=== PATIENT | female | born 1970 | race Caucasian/White ===

== ENCOUNTER → 2017-10-23 | Outpatient (REF) | payer BC ==
[2017-10-23 16:34] LABS: TOTAL 25(OH) VITAMIN D 30.8 NG/ML (30.0-100.0)
[2017-10-23 16:37] LABS: ALBUMIN 3.8 GM/DL (3.2-5.2); ALBUMIN/GLOBULIN RATIO 1.12 (1.00-1.93); ALKALINE PHOSPHATASE 101 U/L (45-117); ALT/SGPT 23 U/L (12-78); ANION GAP 5 MEQ/L (8-16); AST/SGOT 14 U/L (7-37); BILIRUBIN,TOTAL 0.4 MG/DL (0.2-1.0); BLOOD UREA NITROGEN 9 MG/DL (7-18); CALCIUM LEVEL 8.6 MG/DL (8.5-10.1); CARBON DIOXIDE LEVEL 31 MEQ/L (21-32); CHLORIDE LEVEL 106 MEQ/L (98-107); CREATININE FOR GFR 0.62 MG/DL (0.55-1.30); GLOMERULAR FILTRATION RATE > 60.0 (>58); GLUCOSE, FASTING 95 MG/DL (70-100); SODIUM LEVEL 142 MEQ/L (136-145); THYROID STIMULATING HORMONE 0.457 uIU/ML (0.358-3.740); TOTAL PROTEIN 7.2 GM/DL (6.4-8.2)
== END ==
LOC: M SFHCPLAZ 14:43
DX: Z00.00 Encounter for general adult medical examination without abnormal findings (principal); E55.9 Vitamin D deficiency, unspecified
CPT/HCPCS: 84443

== ENCOUNTER → 2018-11-02 | Outpatient (CLI) | payer BC ==
[2018-11-02 10:37] LABS: ALBUMIN 3.5 GM/DL (3.2-5.2); ALT/SGPT 20 U/L (12-78); BILIRUBIN,TOTAL 0.7 MG/DL (0.2-1.0); BLOOD UREA NITROGEN 11 MG/DL (7-18); CALCIUM LEVEL 8.8 MG/DL (8.5-10.1); CARBON DIOXIDE LEVEL 29 MEQ/L (21-32); CHLORIDE LEVEL 106 MEQ/L (98-107); CHOLESTEROL LEVEL 177 MG/DL (<200); CHOLESTEROL RISK RATIO 4.317 (<5); CREATININE FOR GFR 0.64 MG/DL (0.55-1.30); GLOMERULAR FILTRATION RATE > 60.0 (>51); GLUCOSE, FASTING 92 MG/DL (70-100); HDL CHOLESTEROL 41 MG/DL (>40); LDL CHOLESTEROL 116 MG/DL (<100); NON-HDL-C 136 MG/DL; POTASSIUM SERUM 4.5 MEQ/L (3.5-5.1); SODIUM LEVEL 140 MEQ/L (136-145); THYROID STIMULATING HORMONE 0.429 uIU/ML (0.358-3.740); TOTAL 25(OH) VITAMIN D 28.3 NG/ML (30.0-100.0); TOTAL PROTEIN 6.9 GM/DL (6.4-8.2); TRIGLYCERIDES LEVEL 99 MG/DL (<150)
[2018-11-02 10:49] LABS: HEMOGLOBIN A1c 5.8 %
== END ==
LOC: M SMT 07:57
PROVIDERS: ATTEND Nurse Practitioner Adult Health
DX: Z00.00 Encounter for general adult medical examination without abnormal findings (principal); E55.9 Vitamin D deficiency, unspecified; Z83.3 Family history of diabetes mellitus; Z80.8 Family history of malignant neoplasm of other organs or systems

== ENCOUNTER → 2020-03-16 | Outpatient (CLI) | payer BC | LOC: M LABSMTC 10:34 | PROVIDERS: ATTEND Orthopaedic Surgery | DX: Z01.812 Encounter for preprocedural laboratory examination (principal); Z20.828 Contact with and (suspected) exposure to other viral communicable diseases ==

== ENCOUNTER → 2020-04-24 | Outpatient (CLI) | payer BC | LOC: M LABSMTC 09:12 | PROVIDERS: ATTEND Orthopaedic Surgery | DX: Z01.812 Encounter for preprocedural laboratory examination (principal); Z20.828 Contact with and (suspected) exposure to other viral communicable diseases ==

== ENCOUNTER → 2020-05-22 | Outpatient (REF) | payer BC ==
[2020-05-22 17:41] LABS: APPEARANCE, URINE CLEAR (CLEAR); BACTERIA, URINE AUTO 1+ (NEGATIVE); BILIRUBIN, URINE AUTO NEGATIVE (NEGATIVE); BLOOD, URINE BLOOD NEGATIVE (NEGATIVE); COLOR, URINE STRAW (YELLOW); GLUCOSE, URINE (UA) AUTO NEGATIVE (NEGATIVE); KETONE, URINE AUTO NEGATIVE (NEGATIVE); LEUKOCYTE ESTERASE, URINE AUTO NEGATIVE (NEGATIVE); NITRITE, URINE AUTO NEGATIVE (NEGATIVE); PROTEIN, URINE AUTO NEGATIVE (NEGATIVE); RBC, URINE AUTO 1 /HPF (0-3); SPECIFIC GRAVITY URINE AUTO 1.004 (1.002-1.035); SQUAMOUS EPITHELIAL CELL UR AU 0 /HPF (0-6); UROBILINOGEN, URINE AUTO 0.2 mg/dL (0.0-2.0); WBC, URINE AUTO 0 /HPF (0-3)
== END ==
LOC: M SMT 17:08
PROVIDERS: ATTEND Nurse Practitioner Family
DX: R35.0 Frequency of micturition (principal)

== ENCOUNTER → 2021-03-05 | Outpatient (CLI) | payer BC ==
[2021-03-05 11:11] LABS: ALT/SGPT 32 U/L (12-78); BILIRUBIN,TOTAL 0.8 MG/DL (0.2-1.0); BLOOD UREA NITROGEN 12 MG/DL (7-18); CALCIUM LEVEL 9.4 MG/DL (8.5-10.1); CARBON DIOXIDE LEVEL 29 MEQ/L (21-32); CHLORIDE LEVEL 108 MEQ/L (98-107); CHOLESTEROL LEVEL 214 MG/DL (<200); CREATININE FOR GFR 0.65 MG/DL (0.55-1.30); GLOMERULAR FILTRATION RATE > 60.0 (>51); GLUCOSE, FASTING 97 MG/DL (70-100); POTASSIUM SERUM 4.8 MEQ/L (3.5-5.1); SODIUM LEVEL 139 MEQ/L (136-145); TRIGLYCERIDES LEVEL 236 MG/DL (<150)
[2021-03-05 11:12] LABS: ALBUMIN 3.6 GM/DL (3.2-5.2); CHOLESTEROL RISK RATIO 6.294 (<5); HDL CHOLESTEROL 34 MG/DL (>40); LDL CHOLESTEROL 133 MG/DL (<100); MAGNESIUM LEVEL 2.3 MG/DL (1.8-2.4); NON-HDL-C 180 MG/DL; THYROID STIMULATING HORMONE 0.491 uIU/ML (0.358-3.740)
[2021-03-05 11:55] LABS: TOTAL 25(OH) VITAMIN D 47.6 NG/ML (30.0-100.0)
[2021-03-05 15:13] LABS: HEMOGLOBIN A1c 5.8 %
== END ==
LOC: M PLALAB 07:17
PROVIDERS: ATTEND Nurse Practitioner Adult Health
DX: Z00.00 Encounter for general adult medical examination without abnormal findings (principal); Z83.3 Family history of diabetes mellitus; E55.9 Vitamin D deficiency, unspecified; I87.2 Venous insufficiency (chronic) (peripheral); Z13.220 Encounter for screening for lipoid disorders; Z80.8 Family history of malignant neoplasm of other organs or systems

== ENCOUNTER → 2021-04-12 | Outpatient (CLI) | payer BC ==
[~2021-04-12] MED LIST: APPLCAP PO; NOXI1TAB PO; OMEP40CA4 PO; QC A650T3 PO; RA M500C PO; SENN8.6T58 PO
== END ==
LOC: M LABSMTC 09:42
PROVIDERS: ATTEND Anesthesiology
DX: Z01.812 Encounter for preprocedural laboratory examination (principal); Z20.822 Contact with and (suspected) exposure to COVID-19

== ENCOUNTER 2021-04-16 07:54 | Day surgery (SDC) | payer BC ==
[~2021-04-16] VITALS: Ht 167.6 cm; Wt 89.3 kg
[~2021-04-16 07:54] MED LIST changes: +NS 1,000 ML IV ONE
--- OUTSIDE RECORDS SUMMARY | 2021-04-16 07:59 | CCD ---
Author Author [facility] Organization [facility] Address Unknown Phone Unavailable Care Team Providers Care Lot Attendant Name Role Phone Keya Almaguer MD Unavailable Unavailable Keya Almaguer MD Unavailable Unavailable Keya Almaguer MD Unavailable Unavailable Keya Almaguer MD Unavailable Unavailable Keya Almaguer MD Unavailable Unavailable Keya Almaguer MD Unavailable Unavailable Keya Almaguer MD Unavailable Unavailable Keya Almaguer MD Unavailable Unavailable Keya Almaguer MD Unavailable Unavailable Keya Almaguer MD Unavailable Unavailable Keya Almaguer MD Unavailable Unavailable Keya Almaguer MD Unavailable Unavailable Keya Almaguer MD Unavailable Unavailable Keya Almaguer MD Unavailable Unavailable Keya Almaguer MD Unavailable Unavailable Keya Almaguer MD Unavailable Unavailable Keya Almaguer MD Unavailable Unavailable Keya Almaguer MD Unavailable Unavailable Keya Almaguer MD Unavailable Unavailable Keya Almaguer MD Unavailable Unavailable Keya Almaguer MD Unavailable Unavailable Rosina, Keya Mane MD Unavailable Unavailable Rosina, Keya Mane MD Unavailable Unavailable Rosina, Keya Mane MD Unavailable Unavailable Rosina, Keya Mane MD Unavailable Unavailable Rosina, Keya Mane MD Unavailable Unavailable Rosina, Keya Mane MD Unavailable Unavailable Rosina, Keya Mane MD Unavailable Unavailable Rosina, Keya Mane MD Unavailable Unavailable Rosina, Keya Mane MD Unavailable Unavailable Rosina, Keya Mane MD Unavailable Unavailable Rosina, Keya Mane MD Unavailable Unavailable Rosina, Keya Mane MD Unavailable Unavailable Rosina, Keya Mane MD Unavailable Unavailable Rosina, Keya Mane MD Unavailable Unavailable Rosina, Keya Mane MD Unavailable Unavailable Rosina, Keya Mane MD Unavailable Unavailable Rosina, Keya Mane MD Unavailable Unavailable Rosina, Keya Mane MD Unavailable Unavailable Rosina, Keya Mane MD Unavailable Unavailable Rosina, Keya Mane MD Unavailable Unavailable Rosina, Keya Mane MD Unavailable Unavailable Rosina, Keya Mane MD Unavailable Unavailable Rosina, Keya Mane MD Unavailable Unavailable Rosina, Keya Mane MD Unavailable Unavailable Rosina, Keya Mane MD Unavailable Unavailable Rosina, Keya Mane MD Unavailable Unavailable Rosina, Keya Mane MD Unavailable Unavailable RosinaKeya MD Unavailable Unavailable RosinaKeya MD Unavailable Unavailable Rosina, Keya Mane MD Unavailable Unavailable RosinaKeya MD Unavailable Unavailable Rosina, Keya Mane MD Unavailable Unavailable Rosina, Keya Mane MD Unavailable Unavailable Rosina, Keya Mane MD Unavailable Unavailable RosinaKeya MD Unavailable Unavailable RosinaKeya MD Unavailable Unavailable RosinaKeya MD Unavailable Unavailable RosinaKeya MD Unavailable Unavailable Rosina, Keya Mane MD Unavailable Unavailable RosinaKeya MD Unavailable Unavailable RosinaKeya MD Unavailable Unavailable RosinaKeya MD Unavailable Unavailable RosinaKeya MD Unavailable Unavailable RosinaKeya MD Unavailable Unavailable RosinaKeya MD Unavailable Unavailable RosinaKeya MD Unavailable Unavailable Rosina, Keya Mane MD Unavailable Unavailable RosinaKeya MD Unavailable Unavailable Rosina, Keya Maen MD Unavailable Unavailable RosinaKeya MD Unavailable Unavailable RosinaKeya MD Unavailable Unavailable Coon, A Natalia PA Unavailable Unavailable Coon, A Natalia PA Unavailable Unavailable Coon, A Natalia PA Unavailable Unavailable Coon, A Natalia PA Unavailable Unavailable Coon, A Natalia PA Unavailable Unavailable Coon, A Natalia PA Unavailable Unavailable Coon, A Natalia PA Unavailable Unavailable Coon, A Natalia PA Unavailable Unavailable Coon, A Natalia PA Unavailable Unavailable Coon, A Natalia PA Unavailable Unavailable Coon, A Natalia PA Unavailable Unavailable Coon, A Natalia PA Unavailable Unavailable Coon, A Natalia PA Unavailable Unavailable Coon, A Natalia PA Unavailable Unavailable Coon, A Natalia PA Unavailable Unavailable Coon, A Natalia PA Unavailable Unavailable Coon, A Natalia PA Unavailable Unavailable Coon, A Natalia PA Unavailable Unavailable Coon, A Natalia PA Unavailable Unavailable Coon, A Natalia PA Unavailable Unavailable Coon, A Natalia PA Unavailable Unavailable Coon, A Natalia PA Unavailable Unavailable Coon, A Natalia PA Unavailable Unavailable Coon, A Natalia PA Unavailable Unavailable Coon, A Natalia PA Unavailable Unavailable Coon, A Natalia PA Unavailable Unavailable Coon, A Natalia PA Unavailable Unavailable Coon, A Natalia PA Unavailable Unavailable Coon, A Natalia PA Unavailable Unavailable Coon, A Natalia PA Unavailable Unavailable Coon, A Natalia PA Unavailable Unavailable Coon, A Natalia PA Unavailable Unavailable Coon, A Natalia PA Unavailable Unavailable Coon, A Natalia PA Unavailable Unavailable Coon, A Natalia PA Unavailable Unavailable Coon, A Natalia PA Unavailable Unavailable Coon, A Natalia PA Unavailable Unavailable Coon, A Natalia PA Unavailable Unavailable Coon, A Natalia PA Unavailable Unavailable Coon, A Natalia PA Unavailable Unavailable Coon, A Natalia PA Unavailable Unavailable Coon, A Natalia PA Unavailable Unavailable Re-disclosure Warning The records that you are about to access may contain information from federally-assisted alcohol or drug abuse programs. If such information is present, then the following federally mandated warning applies: This information has been disclosed to you from records protected by federal confidentiality rules (42 CFR part 2). The federal rules prohibit you from making any further disclosure of this information unless further disclosure is expressly permitted by the written consent of the person to whom it pertains or as otherwise permitted by 42 CFR part 2. A general authorization for the release of medical or other information is NOT sufficient for this purpose. The Federal rules restrict any use of the information to criminally investigate or prosecute any alcohol or drug abuse patient.The records that you are about to access may contain highly sensitive health information, the redisclosure of which is protected by Article 27-F of the [facility] Public Health law. If you continue you may have access to information: Regarding HIV / AIDS; Provided by facilities licensed or operated by the [facility] Office of Mental Health; or Provided by the [facility] Office for People With Developmental Disabilities. If such information is present, then the following [facility] mandated warning applies: This information has been disclosed to you from confidential records which are protected by state law. State law prohibits you from making any further disclosure of this information without the specific written consent of the person to whom it pertains, or as otherwise permitted by law. Any unauthorized further disclosure in violation of state law may result in a fine or long-term sentence or both. A general authorization for the release of medical or other information is NOT sufficient authorization for further disc losure. Allergies and Adverse Reactions Type Description Substance Reaction Status Data Source(s ) Propensity to adverse reactions Oxybutynin oxybutynin not helpful Ac tive [facility]CW[facility] ([facility]) Family History Family Member Name Family Member Gender Family Member Status Date o f Status Description Data Source(s) Unknown Female Problem [facility] ([facility]) Unknown Female Problem [facility] ([facility]) Unknown Female Problem [facility] ([facility]) Unknown Female Problem [facility] ([facility]) Encounters Encounter Providers Location Date Indications Data Source(s ) Outpatient Attender: Antonietta Almaguer MDReferrer: Antonietta Almaguer MD 04/12/2022 12:00:00 AM [facility] Outpatient Attender: Natalia PEREZ 04/12/2022 12:00:00 AM [facility] Outpatient Referrer: Natalia PEREZ 04/11/2021 12 :00:00 AM EDT Encounter for screening mammogram for malignant neoplasm of breast [facility] Encounter for screening mammogram for ma lignant neoplasm of breast Outpatient Referrer: Natalia PEREZ 04/11/2021 12 :00:00 AM EDT Inconclusive mammogram [facility] Inconclusive mammogram Outpatient Attender: Antonietta Almaguer MD [id number] 04/11/2021 12:00:[address] [facility] [place] [address] [address] 01/22/2021 12:00:00 AM EDT eCW1 ([facility]) Unknown [address] [address] 05/22/2020 12:00:00 AM EST eCW1 ([facility]) Outpatient Attender: Natalia PEREZ [id number] 03/23 12:00:00 AM EDT - 04/04/2020 10:34:53 AM EDT Encounter for screening mammogram for ma lignant neoplasm of [facility] Encounter for screening mammogram for ma lignant neoplasm of breast Outpatient Attender: Antonietta WATTeferrer: Antonietta Almaguer MD 04/04/2020 12:00:00 AM EDT Encounter for screening mammogram for malignant neopla sm of [facility] Encounter for screening mammogram for ma lignant neoplasm of breast Outpatient Attender: Antonietta Rdoríguezer: Antonietta Almaguer MD 04/04/2020 12:00:00 AM EDT Inconclusive mammogram [facility] Inconclusive mammogram Immunizations Vaccine Date Status Description Data Source(s) COVID-19 VACCINE Moderna 07/19/2020 12:00:00 AM EST completed [facility] Vaccine Series Complete: YESThis Data wa s Submitted to [facility] [employer]. COVID-19 VACCINE Moderna 06/21/2020 12:00:00 AM EST completed [place] Vaccine Series Complete: NOThis Data was Submitted to [facility] [employer]. Medications Medication Brand Name Start Date Product Form Dose Route Admi nistrative Instructions Pharmacy Instructions Status Indications Reaction Description Data Source(s) Sutab Sutab 03/05/2021 12:00:00 AM EDT active MED[facility] ([facility] ) Bisacodyl 5 MG Delayed Release Oral Tablet [Dulcolax] Dulcol ax 03/05/2021 12:00:00 AM EDT ORAL active M EDENT ([facility]) Acetaminophen 325 MG / Hydrocodone Bitartrate 5 MG Ora l Tablet Hydrocodone-Acetaminophen 03/21/2020 12:00:00 AM EDT active MEDENT ([facility]) Acetaminophen 325 MG / Hydrocodone Bitartrate 5 MG Ora l Tablet Hydrocodone-Acetaminophen 02/11/2020 12:00:00 AM EDT completed MED[facility] ([facility]) 120 ACTUAT Fluticasone propionate 0.044 MG/ACTUAT Metered Dose Inhaler [Flovent] FLOVENT HFA 44 MCG/ACT inhaler FLOVENT HFA 44 MCG/ACT inhaler 06/25/2018 12:00:00 AM EST [facility] 120 ACTUAT Fluticasone propionate 0.045 MG/ACTUAT / salmeterol 0.021 MG/ACTUAT Metered Dose Inhaler [Advair] ADVAIR HFA 45-21 MCG/ACT inhaler ADVAIR HFA 45-21 MCG/ACT inhaler 06/25/2018 12:00:00 AM [facility] Insurance Providers Payer name Policy type / Coverage type Policy ID Covered constitution party ID Covered constitution party's relationship to weiss Policy Weiss Plan Information [employer] [place] 306/806 [id number] SP [id number] BCBS OF [facility] 306/806 [id number] SP [id number] BCBS of [facility] 302/802 [id number] Self 302/802 BLUE CROSS [id number] SP [id number] [facility] [id number] Self EXCELLUS H [id number] Self [id number] BLUE CROSS [id number] SP [id number] EXCELLUS C [id number] Self [id number] [employer] 302/307 [id number] SP [id number] ANSI-Commercial [id number] ANSI-Commercial [id number] EXCELLUS BCBS P [id number] S VYS EXCELLUS BCBS P [id number] S [id number] EXCELLUS BCBS P UNAVAILABLE S UNAV AILABLE BCBS [place] PPO 302/307 [id number] SP [id number] Problems, Conditions, and Diagnoses Code Display Name Description Problem Type Effective Dates Data Source(s) Z12.31 Encounter for screening mammogram for ma lignant neoplasm of breast Encounter for screening mammogram for malignant neoplasm of breast Diagnosis 04/11/2021 08:24:[address] [facility] F17.210 Cigarette smoker Cigarette smoker Problem 01/22/2021 12 :00:00 AM EDT eCW1 ([facility]) F32.89 Menopausal depression Menopausal depression Problem 01/22/2021 12:00:00 AM EDT eCW1 ([facility]) Surgeries/Procedures Procedure Description Date Indications Data Source(s) Endoscopy Wrist W/Release Transverse Carpal Ligament 04/26/2020 12:00:00 AM EST MED[facility] ([facility]) DO NOT USE PRIOR TO 10/22/2015 US BREAST I NCLUDING AXILLA COMPLETE BILATERAL 31909 <td>DO NOT USE PRIOR TO 10/22/[address] INCLUDING AXILLA COMPLETE BILATERAL 34353</td><td>STAT</td><td>04/04/2020 9:27 AM EDT</td><td> Dense breasts</td><td> </td> 04/04/2020 09:27:59 [address]T D[address] breasts [facility] Dense breasts MAMMO DIGITAL SCREENING BILATERAL G0202 <td>MAMMO DIGI SKIP SCREENING BILATERAL G0202</td><td>STAT</td><td>04/04/2020 8:53 AM EDT</td><td> Encounter for screening mammogram for malignant neoplasm of breast</td><td> </td> 04/04/2020 08:53:27 AM EDT Encounter for screening mammogram for malignant neopla sm of breast [facility] Encounter for screening mammogram for ma lignant neoplasm of breast Endoscopy Wrist W/Release Transverse Carpal Ligament 03/21/2020 12:00:00 AM EDT [facility] Results ID Date Data Source [id number] 04/11/2021 10:19:02 AM EDT [facility] Name Value Range Interpretation Code Description Data Stormy rce(s) Supporting Document(s) Progress Note [facility] NGJXOs6nUjOLLvQs11/CGJgdOLKtm7VlQOmeOBj4TGsgQOBuI4RdYEP1mL2vMEV1FEeKZsSzGhThYIPk lbm [file] ICAgICAgICAgICAgICAgICAgICAgICAgICAgICAgICAgICAgICAgICAgICAgICAgICAgICAgICAgICAg ZKGtQKPuGVPqUJ3OQCJsACXmOJJsRTVkBAZnRWXaYS AgICAgICAgICAgICAgICAgICAgICAgICAgICAgICAgICAgICAgICAgICAgICAgICAgICAgICAgICAgIC VqJDHmYIZmHNVzHWVwRCVxPTVjNY0AIJWiDSOyOWNxDGVrHUNbXAWaOMMeHHKzZEDcMDOcKHEcTLBiFB AgICAgICAgICAgICAgICAgICAgICAgICAgICAgICAg LCZdMMEyWZVtQICbPZQrZVMrSABvKPXhPJGeLUBoQZ0QPURaREUmBMPmYEIeBOQrQSWmGXKtCBLgHAAp ICAgICAgICAgICAgICAgICAgICAgICAgICAgICAgICAgICAgICAgICAgICAgICAgICAgICAgICAgICAg OUXvUABdQSKgMKAwDM5HGCUtJMRqWHJbBDXvSBCqOS AgICAgICAgICAgICAgICAgICAgICAgICAgICAgICAgICAgICAgICAgICAgICAgICAgICAgICAgICAgIC GfNINbVXJoNEZoNYWaGRCuAFDtECVfIF1QXFThPPYzEIMpFMTvRIKiODWiSTWcGZPtZSMbXPIuEMYyRY AgICAgICAgICAgICAgICAgICAgICAgICAgICAgICAg SCMzAFBwZEFaQPIzQSBjFPZnALLjTQXqGTBoERLvNMWkZP0UDRNhQFIgEHQbWRIdWDKuQGKqHVTyBJWw ICAgICAgICAgICAgICAgICAgICAgICAgICAgICAgICAgICAgICAgICAgICAgICAgICAgICAgICAgICAg JTXqJAWkHUQhTJIsPIPfCU6AGSHsBPZjSRXjYDNuRT AgICAgICAgICAgICAgICAgICAgICAgICAgICAgICAgICAgICAgICAgICAgICAgICAgICAgICAgICAgIC DuKBLnPKTgAZBuVGJbDNOfMWByIBCgNIZxDX3FBJLgEJTjBHNaCACeFXPbTGOgVITiADCvBWEwTIZoDC AgICAgICAgICAgICAgICAgICAgICAgICAgICAgICAg DBDyXEQzQDInMZBlROEgMPLwMFSiUBGxLGUlCBDxFKDlEALmDD9FSYFvGQHcILYgODIaXPJeFAZfMBQo ICAgICAgICAgICAgICAgICAgICAgICAgICAgICAgICAgICAgICAgICAgICAgICAgICAgICAgICAgICAg NBOhMEGbSOIxQMBuRRWdDUSeQK1ZKR54wQXpn0C2VS NtIQ5fqzc/Ik4JOPbnmnLadEVwMO1WDeHeCQ6bcz4ZNxKaGZ8bhq1JXCgHJkHlS7T4sMJoKFYrYFHWAo TsM56sIAewAr44EZuzQXJoHrKeRAe5Ie9ZDjObG1tsWZJwNbG8HIDoGfG4TFHjGaN4EPVjUlAjLECjYH RhSVWxAMINYZT0CAUlGhZdCHddOB9Ou0YszDD6NVk+ Vv9BTR0ed6PwEKrlTcQfIR7xym9JQQdQThKsM3YwapE2NJQrRUSnXm2YFINwYBRrbCReEnOtNXAFAvXz L8TnlE81OISYIv1+XHekioPdVxvUFtBpBGKvf4GeEMt2CM6NXBCaPLm9yGNzIQZmJ2Sfe0OdGn03PIPs YnkgTWFyeSBFbGxlbiBHcmVjbywgTUQgYXQgMTAvMj SwUdYfMOJnFJufXQWYGXcNMxCaP3Vwx1FfXwL3LEViYeAeOQduIJRjTLgcIC19xNcqTM6BAURyHYIgXG 31OKTqXLXwXz0KKr0QCpLgLR2tnc6TRzBhFUKcOcfJAsk7JElbKL1SwLRaE0FkxPWfx7uTIqUxT6ZZAR FsAFEuMi2KWBUzKqVtLMHbFNskFG4qSHWjNTQOdJhu wmI4CG8PAS8clmHnKD3FWyZfRv9dKr5SHsZaV6ObU1WnBJCsGYGBUKnbHX0LTNnmQC9kUR0Tp8DYjGOe mU7kyt3SCVFoEVZhXmxaak5YPkwtA6Y0rSetCTRjTrUuSXKCGLxtAW9UVYBtQMV7HOWhPPCcVRZUYwMi P54tPO4VO7Ssz78rRpX1QANcJdVmSQuqER77xQzorb HxmWIltCzdZM4OXp8+SCnwqqOoXtyNCcpaASRPLaXwJwPLQjNcUIIcFAXdNQLvIkY5YrPoMs7PXBJjIH HnGLSxUvSiNPTiWJMcAQyeFIQsXNJ4JmJ0ZWWpZCFiDR8CDhVbEACqWumnFtCjNQUmFTNdvz1PWNKsTG KkGBN6FsGnGSWuQFHfPJtnCSOcDDLbAUP3IEGoDUCq DU4CZqZxFSQvEXMqPMAkJKLrOLQlzn9FLVEsCFVnYdQ9AQRlQIJdSMMtZWqtJTDdUWI6Nzg4HWYgGSKj HD1KWtXwRNSyVXW3OVhcLVAbCNFddv1PLRTuGAChUHutPpSrMJYxKHBcZQgrYNBrDMAeNflmCVHvYAIt ZL1GVaUgECGnINK8PAidNNUdBMPzan5RGQWlJMPfSy AwWsRjFAEyCIFcDBizHZXbJKN1CbJpXQRyEGKnBD8BFoMdHNVsZkHsBjwyVCLzSBHjaa7MAUWjABBzGA A6JLPqPMFuSOBkNFknRIWrNOOxRiY3PWCuTFUrDV5LZlLcRRMjJoP0EYJnNVMpOYZxsu2FZOYwNHQtUE U5OMFmJQEkCDFyFOovSJWdETLsPUH3SYPlTEGpQX0Q KyCsIRLuPsR9YGFiAZYhYBLkte6AESAsEBTmGhmeWZRmCLZtVVNtCGjwDHLnSPB5SzZ4EAIrVUXvSU9C ScTzLDSiYmQ9PNnoVCVpNXFcxw3CQPWeWGGnXHf4OQRhHIIbXOLpERplNXYhUAG6PAY4VYYnNNBmQI5T DqTdWEGaBkJvFETiYDDdCUMhvk1PXMEkDFLoEwWuYJ RqQMCiATTqKGpjMUVxTED3OYF7MHIbULJuMN6IQrVqYUNbMsJ2XNJrTHNdZMSbqj9RYAHkSZGeBfWqUI MwJQObAYKrPJjcDWEkRKA5HDrmWPCpGYSgMM3NMlKxWLRvVzq1GaEbYOFhMNVpyl4TVMMyWNJvOIqvJK SqQZOnTKAoMPl2ocUvxLVkVRy5TZ9HI1BaywWgQvCC Ne2Ju934WWK2WEPxYx0IT6faFq2yPXZaAIYZVw4MYXu0VpA3AzJzIPM5GsV6BOXqFoLnHgAuBzigZZX4 K5Q7Q8N+SYwaULWfGcGmDXagCUi7SVMsRAB6NWWqHPFjBOivCoihBI6eGFLOJe4+DQpzdGFydHhyZWYN AsN9YJG0JZjdBDSJGb7G ID Date Data Source [id number] 04/11/2021 10:08:40 AM EDT [facility] MAMMO DIGITAL SCREENING BILATERAL 66921P INAL RESULTInterpreted by:Radha Keen MDBILATERAL DIGITAL MAMMOGRAM WITH COMPUTER-AIDED DETECTION AND BILATERAL COMPLETE BREAST ULTRASOUNDINDICATION: Screening.HISTORY: Family history breast cancer diagnosed in a paternal aunt. The patient reports no current breast problems and no personal history of a breast procedure.COMPARISON: Prior mammogram(s) dating to 03/14/2011. Breast ultrasound studies dated 04/04/2020, 09/30/2018, 09/24/2017, 09/11/2016, 03/06/2016.LAST CLINICAL BREAST EXAM: 03/2020Breast Cancer Risk Assessment, [place] model:5 year risk:0.9%Lifetime risk:7.1%TECHNIQUE: Left lateral, craniocaudal and lateral magnification views, bilateral craniocaudal and mediolateral oblique digital mammograms were obtained. Tomosynthesis was utilized. Computer-aided detection was utilized. Bilateral complete breast ultrasound was also performed including all 4 quadrants, subareolar regions and axilla.BILATERAL MAMMOGRAPHIC FINDINGS: The breasts are heterogeneously dense, which may obscure small masses. Density category C. Grouped calcifications within the lateral left breast demonstrate features of benign milk of calcium. No suspicious masses, suspicious calcifications, or areas of architectural distortion are seen. No suspicious interval change.BILATERAL ULTRASOUND FINDINGS: Background echotexture is heterogenous. No suspicious cystic or solid lesion is visualized within either breast or jaciel appear Within the right breast in o'clock, 2 cm from the nipple, there is a 1.3 x 0.4 x 1 0.9 cm oval isoechoic mass. This does not appear significantly changed when compared to 03/06/2016 at which time it measured 1.4 x 0.6 x 1.3 cm. There are bilateral benign-appearing ducts. IMPRESSION: 1.No mammographic evidence of malignancy.2. Grouped left breast calcifications demonstrate features of a benign milk of calcium.3. Right breast mass unchanged for more than 2 years suggesting a benign process.BI-RADS 2 - BenignRECOMMENDATION: Annual mammogram. Breast ultrasound may also be considered at that time.This document has been electronically signed by Radha Keen MD on 04/11/2021 10:06 AM Name Value Range Interpretation Code Description Data Stormy rce(s) Supporting Document(s) ID Date Data Source [id number] 04/11/2021 10:08:40 AM [facility] US BREAST INCLUDING AXILLA COMPLETE BILA TERAL [id number] RESULTInterpreted by:Radha Keen MDBILATERAL DIGITAL MAMMOGRAM WITH COMPUTER-AIDED DETECTION AND BILATERAL COMPLETE BREAST ULTRASOUNDINDICATION: Screening.HISTORY: Family history breast cancer diagnosed in a paternal aunt. The patient reports no current breast problems and no personal history of a breast procedure.COMPARISON: Prior mammogram(s) dating to 03/14/2011. Breast ultrasound studies dated 04/04/2020, 09/30/2018, 09/24/2017, 09/11/2016, 03/06/2016.LAST CLINICAL BREAST EXAM: 03/2020Breast Cancer Risk Assessment, [place] model:5 year ri sk:0.9%Lifetime risk:7.1%TECHNIQUE: Left lateral, craniocaudal and lateral magnification views, bilateral craniocaudal and mediolateral oblique digital mammograms were obtained. Tomosynthesis was utilized. Computer-aided detection was utilized. Bilateral complete breast ultrasound was also performed including all 4 quadrants, subareolar regions and axilla.BILATERAL MAMMOGRAPHIC FINDINGS: The breasts are heterogeneously dense, which may obscure small masses. Density category C. Grouped calcifications within the lateral left breast demonstrate features of benign milk of calcium. No suspicious masses, suspicious calcifications, or areas of architectural distortion are seen. No suspicious interval change.BILATERAL ULTRASOUND FINDINGS: Background echotexture is heterogenous. No suspicious cystic or solid lesion is visualized within either breast or jaciel appear Within the right breast in o'clock, 2 cm from the nipple, there is a 1.3 x 0.4 x 1 0.9 cm oval isoechoic mass. This does not appear sign ificantly changed when compared to 03/06/2016 at which time it measured 1.4 x 0.6 x 1.3 cm. There are bilateral benign-appearing ducts. IMPRESSION: 1.No mammographic evidence of malignancy.2. Grouped left breast calcifications demonstrate features of a benign milk of calcium.3. Right breast mass unchanged for more than 2 years suggesting a benign process.BI-RADS 2 - BenignRECOMMENDATION: Annual mammogram. Breast ultrasound may also be considered at that time.This document has been electronically signed by Radha Keen MD on 04/11/2021 10:06 AM Name Value Range Interpretation Code Description Data Stormy rce(s) Supporting Document(s) ID Date Data Source URINE CULTURE 05/22/2020 12:00:00 AM EST eCW1 ([facility]) Name Value Range Interpretation Code Description Data Stormy rce(s) Supporting Document(s) URINE CULTURE eCW1 ([facility]) ID Date Data Source UA URINALYSIS 05/22/2020 12:00:00 AM EST eCW1 ([facility]) Name Value Range Interpretation Code Description Data Stormy rce(s) Supporting Document(s) UA URINALYSIS eCW1 ([facility]) ID Date Data Source [id number] 04/24/2020 11:45:00 AM EST MEDENT ([facility]) Name Value Range Interpretation Code Description Data Stormy rce(s) Supporting Document(s) Laboratory test finding (navigational concept) Laboratory test result MEDENT ([facility] ) This nucleic acid amplification test was developed and its performance characteristics determined by [employer] Nucleic acid amplification tests include PCR and TMA. This test has not been FDA cleared or approved. This test has been authorized by FDA under an Emergency Use Authorization (EUA). This test is only authorized for the duration of time the declaration that circumstances exist justifying the authorization of the emergency use of in vitro diagnostic tests for detection of SARS-CoV-2 virus and/or diagnosis of COVID-19 infection under section 564(b)(1) of the Act, 21 U.S.C. 360bbb-3 (b) (1), unless the authorization is terminated or revoked sooner. When diagnostic testing is negative, the possibility of a false negative result should be considered in the context of a patient's recent exposures and the presence of clinical signs and symptoms consistent with COVID-19. An individual without symptoms of COVID-19 and who is not shedding SARS-CoV-2 virus would expect to have a negative (not detected) result in this assay. Performed at: [facility] [id number] Bartender: Marina Muro MD, Phone: [phone] Not Detected ID Date Data Source [id number] 04/24/2020 11:45:00 AM EST [facility] Name Value Range Interpretation Code Description Data Stormy rce(s) Supporting Document(s) SARS coronavirus 2 RNA [facility] This lab was ordered by [facility] and reported by [facility]. ID Date Data Source [id number] 04/04/2020 05:10:23 PM T [facility] Name Value Range Interpretation Code Description Data Stormy rce(s) Supporting Document(s) Progress Note [facility] [id number] [facility] [file] [id number] ID Date Data Source [id number] 04/04/2020 09:43:01 AM T [facility] MAMMO DIGITAL SCREENING BILATERAL [id number] INAL RESULTInterpreted by:Radha Keen MDBILATERAL DIGITAL MAMMOGRAM WITH COMPUTER-AIDED DETECTION AND BILATERAL COMPLETE BREAST ULTRASOUNDINDICATION: Screening. The patient reports no current breast problems, no personal history of a breast procedure, and no family history of breast cancer.COMPARISON: Prior mammograms dated 09/30/2018, 09/24/2017, 09/11/2016, 09/06/2015, 09/16/2014, 03/14/2011, breast ultrasound studies dated 09/30/2018, 09/24/2017, 09/11/2016LAST CLINICAL BREAST EXAM: 2019Breast Cancer Risk Assessment, [place] model:5 year risk:0.8%Lifetime risk:7.2%TECHNIQUE: Craniocaudal and mediolateral oblique digital mammograms were obtained. Tomosynthesis was utilized. Computer-aided detection was utilized. Bilateral complete breast ultrasound was also performed.BILATERAL MAMMOGRAPHIC FINDINGS: The breasts are heterogeneously dense, which may obscure small masses. Density category C. No new or suspicious masses, suspicious calcifications, or areas of architectural distortion are seen. No suspicious interval change.Bilateral ultrasound findings: Background echotexture is heterogenous. No suspicious cystic or solid lesion is visualized within either breast or axilla.Within the retroareolar region right breast at 8:00 there is a 1.4 x 0.5 x 1.0 cm oval hypoechoic mass. This does not appear significantly changed. There are multiple areas of benign-appearing cysts and areas of duct ectasia within both breasts.IMPRESSION: No mammographic or sonographic evidence of malignancy.BI- RADS 2 - BenignRECOMMENDATION: Bilateral mammogram and ultrasound in 12 months. This document has been electronically signed by Radha Keen MD on 04/04/2020 9:40 AM Name Value Range Interpretation Code Description Data Stormy rce(s) Supporting Document(s) ID Date Data Source [id number] 04/04/2020 09:43:01 AM [facility] US BREAST INCLUDING AXILLA COMPLETE BILA TERAL [id number] RESULTInterpreted by:Radha Keen MDBILATERAL DIGITAL MAMMOGRAM WITH COMPUTER-AIDED DETECTION AND BILATERAL COMPLETE BREAST ULTRASOUNDINDICATION: Screening. The patient reports no current breast problems, no personal history of a breast procedure, and no family history of breast cancer.COMPARISON: Prior mammograms dated 09/30/2018, 09/24/2017, 09/11/2016, 09/06/2015, 09/16/2014, 03/14/2011, breast ultrasound studies dated 09/30/2018, 09/24/2017, 09/11/2016LAST CLINICAL BREAST EXAM: 2019Breast Cancer Risk Assessment, [place] model:5 year risk:0.8%Lifetime risk:7.2%TECHNIQUE: Craniocaudal and mediolateral oblique digital mammograms were obtained. Tomosynthesis was utilized. Computer-aided detection was utilized. Bilateral complete breast ultrasound was also performed.BILATERAL MAMMOGRAPHIC FINDINGS: The breasts are heterogeneously dense, which may obscure small masses. Density category C. No new or suspicious masses, suspicious calcifications, or areas of architectural distortion are seen. No suspicious interval change.Bilateral ultrasound findings: Background echotexture is heterogenous. No suspicious cystic or solid lesion is visualized within either breast or axilla.Within the retroareolar region right breast at 8:00 there is a 1.4 x 0.5 x 1.0 cm oval hypoechoic mass. This does not appear significantly changed. There are multiple areas of benign-appearing cysts and areas of duct ectasia within both breasts.IMPRESSION: No mammographic or sonographic evidence of malignancy.BI-RADS 2 - BenignRECOMMENDATION: Bilateral mammogram and ultrasou nd in 12 months. This document has been electronically signed by Radha Keen MD on 04/04/2020 9:40 AM Name Value Range Interpretation Code Description Data Stormy rce(s) Supporting Document(s) ID Date Data Source [id number] 03/16/2020 10:05:00 AM EDT [facility] ([facility]) Name Value Range Interpretation Code Description Data Stormy rce(s) Supporting Document(s) Coronavirus 2019 Nasopharygeal Laboratory [facility] This nucleic acid amplification test was developed and its performance characteristics determined by [employer] Nucleic acid amplification tests include PCR and TMA. This test has not been FDA cleared or approved. This test has been authorized by FDA under an Emergency Use Authorization (EUA). This test is only authorized for the duration of time the declaration that circumstances exist justifying the authorization of the emergency use of in vitro diagnostic tests for detection of SARS-CoV-2 virus and/or diagnosis of COVID-19 infection under section 564(b)(1) of the Act, 21 U.S.C. 360bbb-3 (b) (1), unless the authorization is terminated or revoked sooner. When diagnostic testing is negative, the possibility of a false negative result should be considered in the context of a patient's recent exposures and the presence of clinical signs and symptoms consistent with COVID-19. An individual without symptoms of COVID-19 and who is not shedding SARS-CoV-2 virus would expect to have a negative (not detected) result in this assay. Performed at: [facility] [id number] Bartender: Marina Muro MD, Phone: [phone] Not Detected ID Date Data Source [id number] 03/16/2020 10:05:00 AM EDT [facility] Name Value Range Interpretation Code Description Data Stormy rce(s) Supporting Document(s) SARS coronavirus 2 RNA [facility] This lab was ordered by [facility] and reported by [facility]. Procedure Social History Code Duration Value Status Description Data Source(s ) Smoking 01/22/2021 12:00:00 AM EDT Current Smoker completed Curre nt Smoker eCW1 ([facility]) Alcohol intake 04/04/2020 12:00:00 AM EDT Not Asked completed [facility] Tobacco use and exposure 04/04/2020 12:00:00 AM EDT Never used co mpleted Never used [facility] Cigarettes smoked current (pack per day) - Reported 04/04/20 12:00:00 AM EDT UNK completed [facility] Smoking 04/04/2020 12:00:00 AM EDT Current every day smoker co mpleted Current every day smoker [facility] Vital Signs ID Date Data Source UNK Name Value Range Interpretation Code Description Data Source(s) Body mass index (BMI) [Ratio] 32.9 kg/m2 32.9 k g/m2 [facility] ([facility]) Systolic blood pressure 124 mm[Hg] 124 mm[Hg] M [facility] ([facility]) Diastolic blood pressure 82 mm[Hg] 82 mm[Hg] [facility] ([facility]) Body height 66 [in_i] 66 [in_i] [facility] ([facility]) 5'6" Body weight 204.00 [lb_av] 204.00 [lb_av] [facility]) [place] body weight 130 [lb_av] 130 [lb_av] [facility] Body weight 92.534 kg 92.534 kg [facility] ([facility]) Body surface area Derived from formula 2.02 m2 2.02 m2 [facility] ([facility]) Body weight 204.8 [lb_av] 204.8 [lb_av] eCW1 ([facility]) Body weight 92.9 kg 92.9 kg eCW1 ([facility]) Body height [in_i] W1 ([facility]) Body mass index (BMI) [Ratio] 33.05 kg/m2 33.05 kg/m2 W1 ([facility]) Heart rate 94 /min 94 /min eCW1 ([facility]) Respiratory rate 18 /min 18 /min eCW1 ([facility]) Body temperature 98.2 [degF] 98.2 [degF] eCW1 ( [facility]) Systolic blood pressure 124 mm[Hg] 124 mm[Hg] e CW1 ([facility]) Diastolic blood pressure 74 mm[Hg] 74 mm[Hg] eCW1 ([facility]) Body temperature 97.5 [degF] 97.5 [degF] [facility] ([facility]) Body temperature 97.1 [degF] 97.1 [degF] [facility] ([facility]) ID Date Data Source [id number] 04/04/2020 05:10:23 PM EDT [facility] Name Value Range Interpretation Code Description Data Source(s) WEIGHT RECORDED 195 lb 195 lb [facility] Patient Treatment Plan of Care Planned Activity Planned Date Details Description Data Source (s) 120 ACTUAT Fluticasone propionate 0.045 MG/ACTUAT / salmeterol 0.021 MG/ACTUAT Metered Dose Inhaler [Advair] 06/25/2018 12:00:00 AM [facility] 120 ACTUAT Fluticasone propionate 0.044 MG/ACTUAT Metered Dose Inhaler [Flovent] 06/25/2018 12:00:00 AM [facility]
--- OUTSIDE RECORDS SUMMARY | 2021-04-16 07:59 | CCD ---
Author Author [facility] Organization [facility] Address Unknown Phone Unavailable Care Team Providers Care Payroll And Benefits Coordinator Name Role Phone Cathy Hilliard Unavailable PROBLEMS Type Condition ICD9-CM Code [id number] Code Onset Dates Condition S tatus W/U Status Risk SNOMED Code Notes Problem History of kidney stones Z87.442 Active confirmed 766205976 Problem Family history of high cholesterol Z83.49 Activ e confirmed 370077329 Problem Dense breast tissue R92.2 Active confirmed 941742429 Problem GERD (gastroesophageal reflux disease) K21.9 A ctive confirmed 464586763 Problem Family history of type 2 diabetes mellitus Z83.3 Active confirmed 805398690 Problem History of tobacco abuse Z87.891 Active confirmed 3985884774321 Problem Menopausal depression F32.8 Active confirmed 44069986 Problem Menopausal depression F32.89 Active confirmed 19611732 Problem Muscle cramping R25.2 Active confirmed 5530 0003 Problem Cigarette smoker F17.210 Active confirmed 65 042588 Problem Vitamin D deficiency E55.9 Active confirmed 92628522 Problem Bilateral leg and foot pain M79.604 Active confirme d 58935504 Problem Venous insufficiency I87.2 Active confirmed 36004179 Problem Lumbosacral disc disease M51.9 Active confirmed 108429312 Problem Chronic obstructive pulmonary disease, unspecified COPD ty pe J44.9 Active confirmed 86867774 ALLERGIES Allergen (clinical drug ingredient) Drug/Non Drug Allergy do cumented on EMR Reaction Allergy Type Onset Date Status oxybutynin Oxybutynin not helpful Drug Allergy 01/29/2021 Active ENCOUNTERS from 1970 to 2021-01-24 Encounter Location Date Provider Diagnosis [facility] J[facility] [address] [phone] [place] [address] Jan, Cathy Hilliard Annual physical exam Z00.00 ; Dense breast tissue R92.2 ; Family history of type 2 diabetes mellitus Z83.3 ; Bilateral leg and foot pain M79.604 ; Venous insufficiency I87.2 ; Vitamin D deficiency E55.9 ; Lumbosacral disc disease M51.9 ; Menopausal depression F32.89 ; Family history of thyroid cancer Z80.8 ; Cigarette smoker F17.210 ; Encounter for screening colonoscopy Z12.11 and Screening for lipid disorders Z13.220 IMMUNIZATIONS No Information SOCIAL HISTORY Tobacco Use: Social History Observation Description Date Details (start date - stop date) Current Smoker Sex Assigned At : Social History Observation Description Sex Assigned At Unknown Audit Question Answer Notes Total Score: 1 Interpretation: Alcohol Education Zoroastrianism: Question Answer Notes Zoroastrianism 33 None Sexual Hx: Question Answer Notes Had sex in the last 12 months (vaginal, oral, or anal)? Yes Have you ever had an STD? No Prevention Strategies discussed: Other with Men only Use protection? No Drug and Alcohol Question Answer Notes Total Score: 0 Interpretation: No problems reported Alcohol Screening: Question Answer Notes Did you have a drink containing alcohol in the past year? No Points 0 Interpretation Negative Tobacco Use: Question Answer Notes Are you a: current smoker Smoking Cessation Information Given 10/28/2018 Patient counseled on the dangers of tobacco use and urged to quit: 10/28/2018 How many cigarettes a day do you smoke? 11-20 Are you interested in quitting? Thinking about quitting Counseled the patient on smoking cessation, education [facility] 01/22/2021 REASON FOR REFERRAL from 1970 to 2021-01-24 Reason plase eval and treat request ing screening colonoscopy in April Diagnosis 1 Encounter for screening colo noscopy (Z12.11) Referral Organization [facility] Jv Referring Provider First Name Cathy Referring Provider Last Name Arminda Referring Provider Specialty Family Medicine Referred Provider Manpreet Gale Referred Provider Specialty Gastroenterology Referral Priority Routine General Notes Nellie Benson 01/22/2021 2:26 :00 PM > Referral faxed. VITAL SIGNS Weight 204.8 lbs Jan, Weight-kg 92.9 kg Jan, Height 5'6" in Jan, BMI 33.05 kg/m2 Jan, Heart Rate 94 /min Jan, Respiratory Rate 18 /min Jan, Temperature 98.2 degrees Fahrenheit Jan, Oximetry 98 Jan, Blood pressure systolic 124 mm Hg Jan, Blood pressure diastolic 74 mm Hg Jan, MEDICATIONS Medication SIG (Take, Route, Frequency, Duration) Notes Start Da te End Date Status Tylenol Extra Strength 500 MG 2 tablets Orally twice a day Active Omeprazole 20 MG 1 capsule 30 minutes before morning meal Orally Once a day for 30 day(s) Active AZO Bladder Control/Go-Less - as directed Orally Active Vitamin D 2000 UNIT 1 tablet Orally Once a day Active Magnesium 500 MG 2 tablets with a meal Orally Once a day Active PROCEDURES No Information RESULTS No Results REASON FOR VISIT annual appointment MEDICAL (GENERAL) HISTORY Type Description Date Medical History tobacco abuse Medical History onychomycosis toes nails x 10 Medical History kidney stones hx of Medical History tetanus booster 2003 Medical History GERD Medical History depression Medical History flu vaccine fall 2014 [facility] Medical History vitamin D deficiency 16.5 09/14/2013 Medical History maternal grandmother colon cancer Surgical History Partial hysterectomy (has ovaries) Surgical History Tubal ligation dueto tubal Surgical History Exploration surgery Surgical History right axillary cyst Surgical History right leg cyst (removed) Hospitalization History per above Goals Section No Information Health Concerns No Information MEDICAL EQUIPMENT No Information MENTAL STATUS No Information FUNCTIONAL STATUS No Information ASSESSMENTS Encounter Date Diagnosis Assessment Notes Treatment Notes Treatm ent Clinical Notes Jan, Annual physical exam (ICD-10 - Z00.00) age appropriate anticipatory guidance given, per USPSTF recommendations; immunizations up to date. discussed plans for implementing improvement in identified areas, Jan, Dense breast tissue (ICD-10 - R92.2) Follows with [facility] . mammograms continue to be through their service next one 04/11/21 Jan, Family history of type 2 diabetes mellitus (ICD- 10 - Z83.3) Jan, Bilateral leg and foot pain (ICD-10 - M79.604) Was following with neurology services they had her Neurontin she stopped the medication and now takes extra strength Tylenol 1000 mg twice a day Jan, Venous insufficiency (ICD-10 - I87.2) encourage to eat potassium foods on days she takes the med. Is also wearing knee-high support stockings,thru Internet purchase takes magnesium 500 mg twice a day Jan, Vitamin D deficiency (ICD-10 - E55.9) Continues to take vitamin D thousand units daily. Jan, Lumbosacral disc disease (ICD-10 - M51.9) Followed with neurology services, was on Neurontin 300 mg by mouth 3 times a day with effect. stopped med uses tyleno; still has pain radiating down her posterior thighs to her legs. Jan, Menopausal depression (ICD-10 - F32.89) Stop the Paxil states she deals with it Jan, Family history of thyroid cancer (ICD-10 - Z80.8 ) son 29 just diagnosed Jan, Cigarette smoker (ICD-10 - F17.210) Try to quit smoking, use patches, unsuccessful at the current time Jan, Encounter for screening colonoscopy (ICD-10 - Z1 2.11) Like to be referred for screening colonoscopy her paternal grandmother had colon cancer Jan, Screening for lipid disorders (ICD-10 - Z13.220) Jan, Other 1 year annual elizabeth escudero PLAN OF TREATMENT Treatment Notes Assessment Notes Clinical Notes Annual physical exam age appropriate ant icipatory guidance given, per USPSTF recommendations; immunizations up to date. discussed plans for implementing improvement in identified areas, Dense breast tissue Follows with [facility] . mammograms continue to be through their service next one 04/11/21 Bilateral leg and foot pain Was followin g with neurology services they had her Neurontin she stopped the medication and now takes extra strength Tylenol 1000 mg twice a day Venous insufficiency encourage to eat po tassium foods on days she takes the med. Is also wearing knee-high support stockings,thru Internet purchase takes magnesium 500 mg twice a day Vitamin D deficiency Continues to take v itamin D thousand units daily. Lumbosacral disc disease Followed with n eurology services, was on Neurontin 300 mg by mouth 3 times a day with effect. stopped med uses tyleno; still has pain radiating down her posterior thighs to her legs. Menopausal depression Stop the Paxil sta dannie she deals with it Family history of thyroid cancer son 29 just diagnosed Cigarette smoker Try to quit smoking, use patches, unsuccessful at the current time Encounter for screening colonoscopy Like to be referred for screening colonoscopy her paternal grandmother had colon cancer Treatment Notes Test Name Order Date HEMOGLOBIN A1c 2021-01-22 Comprehensive Metabolic Profile (CMP) 2021-01-22 VITAMIN D 25-HYDROXY 2021-01-22 MAGNESIUM LEVEL 2021-01-22 LIPID PANEL (CARDIAC RISK) 2021-01-22 TSH 2021-01-22 Referrals Referral Date Details gui timmons and treat request ing screening colonoscopy in April, Manpreet Gale Next Appt Details 1 Year annual wellness Reason: Provider Name:Cathy Hilliard, 07:30:00 AM, [address], , [place], [address], Insurance Providers Payer Name Payer Address Payer Phone Insured Name Patient Relati onship to Insured Coverage Start Date Coverage End Date [employer] [place] P[employer] [phone] [facility] [employer] [place] [address] CHANEL CHINCHILLA self
--- OUTSIDE RECORDS SUMMARY | 2021-04-16 07:59 | CCD | Continuity of Care Document ---
Author Author Marcela [facility] Organization Unknown Address [address], [address] [place] [address] Phone [phone] Care Team Providers Care Binder Coverstitch Name Role Phone Alkirsty Cathy Cortes R.N. AUTM [phone] AUTM Unavailable Problems Description No Active Problems Social History Type Date Description Comments Sex Unknown ETOH Use Denies alcohol use Tobacco Use Start: Unknown Smokes 1 Pack A Day Tobacco Use Start: Unknown Report Cessation Counseling Was Provided Allergies, Adverse Reactions, Alerts Description No Known Drug Allergies Medications Active Medications SIG Qnty Indications Ordering Provide r Date Sutab [id number] Tablets take tablets as directed per doctor for bowel prep. 1kit Z12.11 Manpreet ross MD 03/05/[address] take 4 tabs by mouth prior to procedure per instructions. 4tabs Z12.11 Manpreet Gale MD 03/05/2021 Magnesium 500mg Tablets bid Unknown Acetaminophen Extra Strength 500mg Tablets 2 tab by mouth bid Unknown [address] 1 by mouth every day Unknown Apple Cider Vinegar 500mg Tablets Daily Unknown Azo Bladder Control/Go-Less Capsu les Daily Unknown Vitamin D 2000Unit Tablets Da jazmyn Unknown Immunizations Description No Information Available Vital Signs Date Vital Result Comment 03/05/2021 8:17am BP Systolic 124 mmHg BP Diastolic 82 mmHg Height 66 inches 5'6" Weight 204.00 lb BMI (Body Mass Index) 32.9 kg/m2 [facility] Body Weight 130 lb Weight 92.534 kg BSA (Body Surface Area) 2.02 m2 Results Description No Information Available Procedures Description No Information Available Medical Devices Description No Information Available Encounters Description No Information Available Assessments Date Code Description Provider 03/05/2021 Z12.11 Encounter for screening for tabitha gnant neoplasm of colon CECELIA Cardenas 03/05/2021 Z80.0 Family history of malignant neop lasm of digestive organs CECELIA Cardenas Plan of Treatment 03/05/2021 - Ann Marie Evens CECELIA Brown* Z12.11 Encounter for screening for malignant neoplasm of colon * Z80.0 Family history of malignant neoplasm of digestive organs * * New Medication:* Sutab 5845-439-858 mg * Dulcolax 5 mg * New Orders:* Colonoscopy, Ordered: 03/05/21 * Comments:* Will arrange for colonoscopy. Reviewed risks and benefits of the procedure, as well as other options, with the patient. Bowel prep procedure was discussed with patient, as well as risks and side effects associated with the bowel prep. Patient verbalized understanding of all of the above and is in agreement to proceed. Patient will seek medical attention for any acute changes. Will monitor. * Follow up:* As scheduled, sooner if needed. Functional Status Description No Information Available Mental Status Description No Information Available Referrals Refer to Reason for Referral Status Appt Date Eduardo Lozano M.D. COLO SCREENING Scheduled 02/21 [facility] [address], [address] [place] [address] [phone]
--- OUTSIDE RECORDS SUMMARY | 2021-04-16 07:59 | CCD | Continuity of Care Document ---
Author Author Marcela [facility] Organization Unknown Address [address], [address] [place] [address] Phone [phone] Care Team Providers Care Water Regulator And Valve Repairer Name Role Phone Alkirsty Cathy Cortes R.N. AUTM [phone] AUTM Unavailable Problems Description No Active Problems Social History Type Date Description Comments Sex Unknown ETOH Use Denies alcohol use Tobacco Use Start: Unknown Smokes 1 Pack A Day Tobacco Use Start: Unknown Report Cessation Counseling Was Provided Allergies, Adverse Reactions, Alerts Description No Known Drug Allergies Medications Active Medications SIG Qnty Indications Ordering Provide r Date Sutab [id number] Tablets take tablets as directed per doctor [...] lb BMI (Body Mass Index) 32.9 kg/m2 [place] Body Weight 130 lb Weight 92.534 kg [...] digestive organs * * New Medication:* Sutab 8511-291-604 mg * Dulcolax 5 mg * New [...] Eduardo Lozano M.D. COLO SCREENING Scheduled 02/21 [facility] [address], [address] [place] [address] [phone]
[2021-04-16] MEDS ORDERED: LIDOCAINE 2% 100MG/5ML SDV (FOR ANES.) As Ordered ONE (08:22)
[2021-04-16] MEDS ORDERED: propofoL 200 MG/20 ML VIAL As Ordered ONE (08:22)
--- NOTE | 2021-04-16 10:12 | ROOR ---
Patient Name: Marcela Chiang Procedure Date: 04/16/2021 9:29 AM Date of : 1970 Age: 50 Room: [facility] Gender: Female Note Status: Finalized Procedure: Colonoscopy Indications: Screening for colorectal malignant neoplasm Providers: Eduardo Lozano MD Referring MD: Cathy Hilliard NP Requesting Provider: Medicines: Monitored Anesthesia Care Complications: No immediate complications. Procedure: Pre-Anesthesia Assessment: - Prior to the procedure, a History and Physical was performed, and patient medications and allergies were reviewed. The patient is competent. The risks and benefits of the procedure and the sedation options and risks were discussed with the patient. All questions were answered and informed consent was obtained. Patient identification and proposed procedure were verified by the physician, the nurse and the anesthesiologist in the procedure room. Mental Status Examination: alert and oriented. Airway Examination: normal oropharyngeal airway and neck mobility. Respiratory Examination: clear to auscultation. CV Examination: normal. Prophylactic Antibiotics: The patient does not require prophylactic antibiotics. Prior Anticoagulants: The patient has taken no previous anticoagulant or antiplatelet agents. ASA Grade Assessment: II - A patient with mild systemic disease. After reviewing the risks and benefits, the patient was deemed in satisfactory condition to undergo the procedure. The anesthesia plan was to use monitored anesthesia care (MAC). Immediately prior to administration of medications, the patient was re-assessed for adequacy to receive sedatives. The heart rate, respiratory rate, oxygen saturations, blood pressure, adequacy of pulmonary ventilation, and response to care were monitored throughout the procedure. The physical status of the patient was re-assessed after the procedure. The Colonoscope was introduced through the anus and advanced to the terminal ileum, with identification of the appendiceal orifice and IC valve. The colonoscopy was performed without difficulty. The patient tolerated the procedure well. The quality of the bowel preparation was good. The terminal ileum, ileocecal valve, appendiceal orifice, and rectum were photographed. Scope insertion time was 2 minutes. Scope withdrawal time was 9 minutes. The total duration of the procedure was 12 minutes. Findings: The perianal and digital rectal examinations were normal. The terminal ileum appeared normal. Five sessile polyps were found in the recto-sigmoid colon and ascending colon. The polyps were 5 to 12 mm in size. These polyps were removed with a hot snare. Resection and retrieval were complete. Verification of patient identification for the specimen was done by the physician and nurse using the patient's name, date and medical record number. Estimated blood loss was minimal. Non-bleeding external and internal hemorrhoids were found during retroflexion. The hemorrhoids were medium-sized. Impression: - The examined portion of the ileum was normal. - Five 5 to 12 mm polyps at the recto-sigmoid colon and in the ascending colon, removed with a hot snare. Resected and retrieved. - Non-bleeding external and internal hemorrhoids. Recommendation: - Patient has a contact number available for emergencies. The signs and symptoms of potential delayed complications were discussed with the patient. Return to normal activities tomorrow. Written discharge instructions were provided to the patient. - High fiber diet. - Continue present medications. - Use fiber, for example Citrucel, Fibercon, Konsyl or Metamucil. - Await pathology results. - Repeat colonoscopy in 3 - 5 years for surveillance based on pathology results. - Telephone GI clinic for pathology results in 2 weeks. - Return to primary care physician. - Return to GI clinic if persistent symptoms or new symptoms. Procedure Code(s): --- Professional --- 71822, Colonoscopy, flexible; with removal of tumor(s), polyp(s), or other lesion(s) by snare technique Diagnosis Code(s): --- Professional --- Z12.11, Encounter for screening for malignant neoplasm of colon K64.8, Other hemorrhoids K63.5, Polyp of colon CPT copyright 2019 [employer]. All rights reserved. The codes documented in this report are preliminary and upon infrastructure project manager review may be revised to meet current compliance requirements. Eduardo Lozano MD Eduardo Lozano MD 04/16/2021 10:12:18 AM Electronically signed by Eduardo Lozano MD Number of Addenda: 0 Note Initiated On: 04/16/2021 9:29 AM Estimated Blood Loss: Estimated blood loss was minimal.
[2021-04-16 10:20] VITALS: BP 134/70
== END 2021-04-16 10:33 | disposition home or self-care (01) ==
LOC: M OPP 07:54
PROVIDERS: ATTEND Internal Medicine Gastroenterology
DX: Z12.11 Encounter for screening for malignant neoplasm of colon (principal); Z80.0 Family history of malignant neoplasm of digestive organs; K63.5 Polyp of colon; K64.8 Other hemorrhoids; Z79.899 Other long term (current) drug therapy; Z80.3 Family history of malignant neoplasm of breast; Z80.51 Family history of malignant neoplasm of kidney; Z80.8 Family history of malignant neoplasm of other organs or systems; F17.210 Nicotine dependence, cigarettes, uncomplicated

== ENCOUNTER → 2021-11-20 | Outpatient (REF) | payer BC ==
[~2021-11-20] MED LIST changes: -NS 1,000 ML IV ONE
== END ==
LOC: M SFHCPLAZ 12:46
PROVIDERS: ATTEND Physician Assistant
DX: L02.411 Cutaneous abscess of right axilla (principal)

== ENCOUNTER → 2022-08-05 | Outpatient (CLI) | payer BC ==
[2022-08-05 10:42] LABS: HEMOGLOBIN 15.1 g/dl (12.0-15.5); MEAN CORPUSCULAR HEMOGLOBIN 31.1 pg (27.0-33.0); MEAN CORPUSCULAR HGB CONC 34.3 g/dl (32.0-36.5); MEAN CORPUSCULAR VOLUME 90.5 fl (80.0-96.0); PLATELET COUNT, AUTOMATED 256 10^3/uL (150-450); RED BLOOD COUNT 4.86 10^6/uL (4.00-5.40); WHITE BLOOD COUNT 7.5 10^3/uL (4.0-10.0)
[2022-08-05 10:57] LABS: HEMOGLOBIN A1c 5.3 % (4.0-6.0)
[2022-08-05 11:18] LABS: ALBUMIN 3.6 G/DL (3.2-5.2); ALKALINE PHOSPHATASE 103 U/L (46-116); ALT/SGPT 21 U/L (7.0-40); AST/SGOT 21 U/L (<34); BILIRUBIN,TOTAL 1.1 MG/DL (0.3-1.2); BLOOD UREA NITROGEN 10 MG/DL (9-23); CALCIUM LEVEL 8.6 MG/DL (8.5-10.1); CARBON DIOXIDE LEVEL 28 MMOL/L (20-31); CHLORIDE LEVEL 108 MMOL/L (98-107); CHOLESTEROL LEVEL 179 MG/DL (<200); CHOLESTEROL RISK RATIO 4.85 (<5); CREATININE FOR GFR 0.62 MG/DL (0.55-1.30); GLOMERULAR FILTRATION RATE > 60.0 (>51); GLUCOSE, FASTING 93 MG/DL (60-100); HDL CHOLESTEROL 36.9 MG/DL (>40); LDL CHOLESTEROL 110.7 MG/DL (<100); MAGNESIUM LEVEL 1.9 MG/DL (1.8-2.4); NON-HDL-C 142 MG/DL; SODIUM LEVEL 141 MMOL/L (136-145); TOTAL PROTEIN 6.5 G/DL (5.7-8.2); TRIGLYCERIDES LEVEL 157 MG/DL (<150)
== END ==
LOC: M PLALAB 08:43
PROVIDERS: ATTEND Nurse Practitioner Adult Health
DX: Z00.00 Encounter for general adult medical examination without abnormal findings (principal); Z83.3 Family history of diabetes mellitus; E55.9 Vitamin D deficiency, unspecified; I87.2 Venous insufficiency (chronic) (peripheral); Z13.220 Encounter for screening for lipoid disorders

== ENCOUNTER → 2024-02-17 | Outpatient (REF) | payer BC ==
[2024-02-17 13:13] LABS: APPEARANCE, URINE CLEAR (CLEAR); BACTERIA, URINE AUTO NEGATIVE (NEGATIVE); BILIRUBIN, URINE AUTO NEGATIVE (NEGATIVE); BLOOD, URINE BLOOD NEGATIVE (NEGATIVE); COLOR, URINE YELLOW (YELLOW); GLUCOSE, URINE (UA) AUTO NEGATIVE (NEGATIVE); KETONE, URINE AUTO NEGATIVE (NEGATIVE); LEUKOCYTE ESTERASE, URINE AUTO TRACE (NEGATIVE); MUCUS, URINE SMALL (NEGATIVE); NITRITE, URINE AUTO NEGATIVE (NEGATIVE); PROTEIN, URINE AUTO NEGATIVE (NEGATIVE); RBC, URINE AUTO 0 /HPF (0-3); SPECIFIC GRAVITY URINE AUTO 1.016 (1.002-1.035); SQUAMOUS EPITHELIAL CELL UR AU 1 /HPF (0-6); UROBILINOGEN, URINE AUTO 0.2 mg/dL (0.0-2.0); WBC, URINE AUTO 12 /HPF (0-3)
== END ==
LOC: M SMT 12:28
PROVIDERS: ATTEND Physician Assistant
DX: R30.0 Dysuria (principal)

== ENCOUNTER → 2024-02-27 | Outpatient (CLI) | payer BC | LOC: M WHC 06:46 | PROVIDERS: ATTEND Nurse Practitioner Adult Health | DX: R10.11 Right upper quadrant pain (principal); R16.0 Hepatomegaly, not elsewhere classified; R93.3 Abnormal findings on diagnostic imaging of other parts of digestive tract ==

== ENCOUNTER → 2024-03-19 | Outpatient (CLI) | payer BC | LOC: M RAD 06:59 | PROVIDERS: ATTEND Nurse Practitioner Adult Health | DX: R10.11 Right upper quadrant pain (principal) | CPT/HCPCS: 78227; A9537 ==

== ENCOUNTER 2024-03-22 11:13 | Inpatient (IN) | payer BC ==
[~2024-03-22] VITALS: Ht 167.6 cm; Wt 85.5 kg
[2024-03-22 12:05] LABS: BASO # 0.1 10^3/uL (0.0-0.2); BASO % 0.5 % (0.0-1.0); EOS # 0.1 10^3/uL (0.0-0.5); EOS % 1.2 % (0.0-3.0); HEMATOCRIT 42.6 % (36.0-47.0); HEMOGLOBIN 14.6 g/dl (12.0-15.5); LYMPH # 1.2 10^3/uL (1.5-5.0); LYMPH % 11.5 % (24.0-44.0); MEAN CORPUSCULAR HEMOGLOBIN 30.1 pg (27.0-33.0); MEAN CORPUSCULAR HGB CONC 34.3 g/dl (32.0-36.5); MEAN CORPUSCULAR VOLUME 87.8 fl (80.0-96.0); MONO # 0.6 10^3/uL (0.0-0.8); MONO % 5.8 % (2.0-8.0); NEUTROPHILS # 8.2 10^3/uL (1.5-8.5); NEUTROPHILS % 80.8 % (36.0-66.0); PLATELET COUNT, AUTOMATED 339 10^3/uL (150-450); RED BLOOD COUNT 4.85 10^6/uL (4.00-5.40); WHITE BLOOD COUNT 10.1 10^3/uL (4.0-10.0)
[2024-03-22 12:42] LABS: LIPASE 45 U/L (12-53)
[2024-03-22 12:45] LABS: ALBUMIN 3.2 G/DL (3.2-5.2); ALKALINE PHOSPHATASE 95 U/L (46-116); ALT/SGPT 21 U/L (7.0-40); AST/SGOT 19 U/L (<34); BILIRUBIN,DIRECT 0.2 MG/DL (<0.4); BILIRUBIN,TOTAL 0.6 MG/DL (0.3-1.2); BLOOD UREA NITROGEN 7 MG/DL (9-23); CARBON DIOXIDE LEVEL 28 MMOL/L (20-31); CHLORIDE LEVEL 106 MMOL/L (98-107); CREATININE FOR GFR 0.67 MG/DL (0.55-1.30); GLOMERULAR FILTRATION RATE > 60.0 (>51); GLUCOSE, FASTING 91 MG/DL (60-100); POTASSIUM SERUM 4.2 MMOL/L (3.5-5.1); SODIUM LEVEL 136 MMOL/L (136-145); TOTAL PROTEIN 6.7 G/DL (5.7-8.2)
[2024-03-22] MEDS: GASTROGRAFIN SOLUTION 30ML PO SCH (13:36)
[2024-03-22] MEDS ORDERED: ISOVUE-370 76% 100ML VIAL As Ordered ONE (14:18)
[2024-03-22] MEDS: PANTOPRAZOLE 40MG VIAL IV SCH (16:54)
[2024-03-22] MEDS ORDERED: PANT40TA29 PO (17:02)
[2024-03-22] MEDS ORDERED: MAGN400T2 PO (17:02)
[2024-03-22] MEDS ORDERED: VITA200031 PO (17:02)
[2024-03-22] MEDS ORDERED: SENN-52 PO (17:02)
[2024-03-22] MEDS ORDERED: HOME MED LIST COMPLETE! XX SCH (17:05)
[2024-03-22 17:20] LABS: INR 1.07; PROTHROMBIN TIME 13.6 SECONDS (12.5-14.5)
[2024-03-22] MEDS: ACETAMINOPHEN 325 MG TAB PO ONE (17:45)
[2024-03-22 21:05] VITALS: BP 144/82; TEMP 97.7; O2SAT 97
[2024-03-22] MEDS ORDERED: PERCOCET 5MG/325MG TAB PO PRN (22:10)
[2024-03-23 04:43] VITALS: BP 144/81; TEMP 97.9; O2SAT 92
[2024-03-23] MEDS: ACETAMINOPHEN TAB 650MG DOSE (2X325MG) PO PRN (05:56)
[2024-03-23] MEDS: PANTOPRAZOLE 40MG VIAL IV SCH (05:56)
[2024-03-23 06:27] LABS: BASO # 0.1 10^3/uL (0.0-0.2); BASO % 0.6 % (0.0-1.0); EOS # 0.1 10^3/uL (0.0-0.5); EOS % 1.1 % (0.0-3.0); HEMATOCRIT 40.2 % (36.0-47.0); HEMOGLOBIN 13.9 g/dl (12.0-15.5); LYMPH % 9.6 % (24.0-44.0); MEAN CORPUSCULAR HEMOGLOBIN 30.4 pg (27.0-33.0); MEAN CORPUSCULAR HGB CONC 34.6 g/dl (32.0-36.5); MONO # 0.7 10^3/uL (0.0-0.8); MONO % 6.4 % (2.0-8.0); NEUTROPHILS # 8.8 10^3/uL (1.5-8.5); NEUTROPHILS % 81.9 % (36.0-66.0); PLATELET COUNT, AUTOMATED 333 10^3/uL (150-450); RED BLOOD COUNT 4.57 10^6/uL (4.00-5.40); WHITE BLOOD COUNT 10.8 10^3/uL (4.0-10.0)
[2024-03-23 06:53] LABS: BLOOD UREA NITROGEN 7 MG/DL (9-23); CALCIUM LEVEL 8.8 MG/DL (8.5-10.1); CARBON DIOXIDE LEVEL 26 MMOL/L (20-31); CHLORIDE LEVEL 109 MMOL/L (98-107); CREATININE FOR GFR 0.62 MG/DL (0.55-1.30); GLOMERULAR FILTRATION RATE > 60.0 (>51); GLUCOSE, FASTING 93 MG/DL (60-100); POTASSIUM SERUM 4.6 MMOL/L (3.5-5.1); SODIUM LEVEL 139 MMOL/L (136-145)
[2024-03-23 06:57] LABS: CARCINOEMBRYONIC ANTIGEN < 2.0 NG/ML (<2.5)
[2024-03-23 07:12] LABS: CA19-9 TUMOR MARKER,CARBOHYDRA 35.4 U/ML (<35.0)
[2024-03-23] MEDS: PERCOCET 5MG/325MG TAB PO PRN (09:46)
[2024-03-23 12:00] VITALS: BP 120/81; TEMP 97.5; O2SAT 96
[2024-03-23 13:40] LABS: APPEARANCE, BODY FLUID HAZY (CLEAR); ASCITES FL COLOR YELLOW (COLORLESS); SOURCE, BODY FLUID ASCITES
[2024-03-23 13:58] LABS: SOURCE, BODY FLUID ALBUMIN ASCITES
[2024-03-23 14:03] LABS: SOURCE, BODY FLUID GLUCOSE ASCITES; SOURCE, BODY FLUID TOT PROTEIN ASCITES; TOTAL PROTEIN, BODY FLUID 4.6 G/DL (NOT ESTABLISHED)
[2024-03-23] MEDS: NICOTINE 14 MG/24 HR TRANSDERMAL TD SCH (19:40)
[2024-03-23 20:00] VITALS: BP 121/65; TEMP 97.9; O2SAT 94
[2024-03-23] MEDS: SENOKOT S TAB PO SCH (20:36)
[2024-03-23] MEDS: MAGNESIUM OXIDE 400MG TAB (MAG-OX) PO SCH (20:36)
[2024-03-24 04:00] VITALS: BP 116/62; TEMP 98.1; O2SAT 95
[2024-03-24 06:57] LABS: BASO # 0.1 10^3/uL (0.0-0.2); BASO % 0.7 % (0.0-1.0); EOS # 0.1 10^3/uL (0.0-0.5); EOS % 1.4 % (0.0-3.0); HEMOGLOBIN 13.1 g/dl (12.0-15.5); LYMPH % 10.9 % (24.0-44.0); MEAN CORPUSCULAR HEMOGLOBIN 29.8 pg (27.0-33.0); MEAN CORPUSCULAR HGB CONC 33.6 g/dl (32.0-36.5); MEAN CORPUSCULAR VOLUME 88.6 fl (80.0-96.0); MONO # 0.5 10^3/uL (0.0-0.8); MONO % 6.1 % (2.0-8.0); NEUTROPHILS # 7.1 10^3/uL (1.5-8.5); NEUTROPHILS % 80.6 % (36.0-66.0); PLATELET COUNT, AUTOMATED 287 10^3/uL (150-450); WHITE BLOOD COUNT 8.8 10^3/uL (4.0-10.0)
[2024-03-24 07:31] LABS: BLOOD UREA NITROGEN 6 MG/DL (9-23); CALCIUM LEVEL 8.2 MG/DL (8.5-10.1); CARBON DIOXIDE LEVEL 26 MMOL/L (20-31); CHLORIDE LEVEL 107 MMOL/L (98-107); CREATININE FOR GFR 0.67 MG/DL (0.55-1.30); GLOMERULAR FILTRATION RATE > 60.0 (>51); GLUCOSE, FASTING 93 MG/DL (60-100); POTASSIUM SERUM 4.4 MMOL/L (3.5-5.1); SODIUM LEVEL 136 MMOL/L (136-145)
[2024-03-24] MEDS: PANTOPRAZOLE 40MG TAB (PROTONIX) PO SCH (09:02)
[2024-03-24] MEDS ORDERED: LIDOCAINE 1% MDV 20ML VIAL As Ordered ONE (11:50)
[2024-03-24 12:00] VITALS: BP 120/80; TEMP 98; O2SAT 95
[2024-03-24 12:40] VITALS: BP 124/61; O2SAT 96
[2024-03-24] MEDS ORDERED: ACET1TAB55 PO (14:23)
[2024-03-24] MEDS ORDERED: TRAM50TA2 PO (14:23)
== END 2024-03-24 15:15 | disposition home or self-care (01) | DRG 229 ==
LOC: M ED 11:13 → M ED INP 16:38 → M MS5PR 21:05
PROVIDERS: ADMIT Internal Medicine Nephrology; ATTEND Internal Medicine
PROC: 0W9G3ZX Drainage of Peritoneal Cavity, Percutaneous Approach, Diagnostic (ICD-10-PCS; 2024-03-23)
PROC: 0JB83ZX Excision of Abdomen Subcutaneous Tissue and Fascia, Percutaneous Approach, Diagnostic (ICD-10-PCS; principal; 2024-03-24 12:00)
DX: C78.6 Secondary malignant neoplasm of retroperitoneum and peritoneum (principal); R18.0 Malignant ascites; E83.42 Hypomagnesemia; K21.9 Gastro-esophageal reflux disease without esophagitis; F32.A Depression, unspecified; Z87.442 Personal history of urinary calculi; Z79.899 Other long term (current) drug therapy

== ENCOUNTER → 2024-03-29 | Outpatient (CLI) | payer BC ==
[~2024-03-29] MED LIST changes: +ACET1TAB55 PO; +MAGN400T2 PO; +PANT40TA29 PO; +SENN-52 PO; +TRAM50TA2 PO; +VITA200031 PO
[2024-03-29 14:30] VITALS: TEMP 97.8
[2024-03-29 14:55] VITALS: BP 125/77; O2SAT 95
== END ==
LOC: M IRPRO 14:07
PROVIDERS: ATTEND Urology
DX: R18.8 Other ascites (principal)

== ENCOUNTER → 2024-04-05 | Outpatient (CLI) | payer BC ==
[2024-04-05 13:18] VITALS: TEMP 98.3
[2024-04-05 13:39] VITALS: BP 126/83; O2SAT 95
== END ==
LOC: M IRPRO 12:52
PROVIDERS: ATTEND Urology
DX: R18.8 Other ascites (principal)

== ENCOUNTER → 2024-04-07 | Outpatient (CLI) | payer BC ==
[~2024-04-07] VITALS: Ht 167.6 cm; Wt 84.0 kg
[~2024-04-07] MED LIST changes: +LIDOCAINE 1% MDV 20ML VIAL As Ordered ONE; +MIDAZOLAM INJ 2MG/2ML VIAL As Ordered ONE; +NS 1,000 ML IV SCH; +ceFAZolin 2 GM/D5W 50 ML IV BAG As Ordered ONE; +fentaNYL 100 MCG/2 ML INJECTION As Ordered ONE
[2024-04-07 10:38] VITALS: TEMP 98
[2024-04-07] MEDS: ceFAZolin SOD 2 GM in IV 1 EA IV ONE (11:06)
[2024-04-07 12:17] VITALS: BP 143/59; O2SAT 94
== END ==
LOC: M IRPRO 10:32
PROVIDERS: ATTEND Internal Medicine Medical Oncology
DX: C48.2 Malignant neoplasm of peritoneum, unspecified (principal)
CPT/HCPCS: 36561; 99152; J0690; J1642; J2250; J3010

== ENCOUNTER → 2024-04-12 | Outpatient (CLI) | payer BC ==
[~2024-04-12] MED LIST changes: -LIDOCAINE 1% MDV 20ML VIAL As Ordered ONE; -MIDAZOLAM INJ 2MG/2ML VIAL As Ordered ONE; -NS 1,000 ML IV SCH; -ceFAZolin 2 GM/D5W 50 ML IV BAG As Ordered ONE; -fentaNYL 100 MCG/2 ML INJECTION As Ordered ONE
[2024-04-12 13:05] VITALS: TEMP 98
[2024-04-12 13:32] VITALS: BP 122/70; O2SAT 95
== END ==
LOC: M IRPRO 12:58
PROVIDERS: ATTEND Urology
DX: R18.8 Other ascites (principal)

== ENCOUNTER → 2024-04-19 | Outpatient (CLI) | payer BC ==
[~2024-04-19] MED LIST changes: +ONDA-84 PO; +PROC10TA5 PO
[2024-04-19 12:25] VITALS: TEMP 97.8
[2024-04-19 13:05] VITALS: BP 136/78; O2SAT 95
== END ==
LOC: M IRPRO 12:07
PROVIDERS: ATTEND Urology
DX: R18.8 Other ascites (principal)

== ENCOUNTER → 2024-04-26 | Outpatient (CLI) | payer BC ==
[2024-04-26 09:50] VITALS: BP 166/80; TEMP 98.3; O2SAT 100
== END ==
LOC: M IRPRO 09:43
PROVIDERS: ATTEND Urology
DX: R18.8 Other ascites (principal)

== ENCOUNTER → 2024-05-31 | Outpatient (CLI) | payer BC ==
[~2024-05-31] MED LIST changes: +FURO40TA2; +GASTROGRAFIN SOLUTION 30ML ONE; +ISOVUE-370 76% 100ML VIAL ONE; +LIDO30CR18 TOP; +SPIR100T3
== END ==
LOC: M PLAIMG 08:08
PROVIDERS: ATTEND Nurse Practitioner Adult Health
DX: R10.84 Generalized abdominal pain (principal); R93.5 Abnormal findings on diagnostic imaging of other abdominal regions, including retroperitoneum; R18.8 Other ascites; R91.8 Other nonspecific abnormal finding of lung field; E27.8 Other specified disorders of adrenal gland
CPT/HCPCS: 74177; Q9963; Q9967

== ENCOUNTER → 2024-07-12 | Outpatient (CLI) | payer BC ==
[~2024-07-12] MED LIST changes: +GABA-1172; +GASTROGRAFIN SOLUTION 30ML As Ordered ONE; -GASTROGRAFIN SOLUTION 30ML ONE; +ISOVUE-370 76% 100ML VIAL As Ordered ONE; -ISOVUE-370 76% 100ML VIAL ONE
== END ==
LOC: M RAD 11:32
PROVIDERS: ATTEND Nurse Practitioner Women's Health
DX: C48.2 Malignant neoplasm of peritoneum, unspecified (principal); N20.0 Calculus of kidney; D35.02 Benign neoplasm of left adrenal gland; K44.9 Diaphragmatic hernia without obstruction or gangrene; K57.90 Diverticulosis of intestine, part unspecified, without perforation or abscess without bleeding; R18.8 Other ascites
CPT/HCPCS: 71260; 74177; Q9963; Q9967

== ENCOUNTER → 2024-07-22 | Outpatient (CLI) | payer BC ==
[~2024-07-22] MED LIST changes: -GASTROGRAFIN SOLUTION 30ML As Ordered ONE; -ISOVUE-370 76% 100ML VIAL As Ordered ONE
== END ==
LOC: M CARPUL 11:19
PROVIDERS: ATTEND Nurse Practitioner Adult Health
DX: Z01.818 Encounter for other preprocedural examination (principal)

== ENCOUNTER → 2024-09-24 | Outpatient (CLI) | payer BC ==
[~2024-09-24] MED LIST changes: +PROHANCE 279.3MG/ML 15ML VIAL ONE
== END ==
LOC: M PLAIMG 07:28
PROVIDERS: ATTEND Physician Assistant
DX: R93.89 Abnormal findings on diagnostic imaging of other specified body structures (principal); N28.89 Other specified disorders of kidney and ureter; D35.02 Benign neoplasm of left adrenal gland
CPT/HCPCS: 74183; A9576

== ENCOUNTER → 2024-10-11 | Outpatient (REF) | payer BC ==
[~2024-10-11] MED LIST changes: -PROHANCE 279.3MG/ML 15ML VIAL ONE
[2024-10-11 13:40] LABS: APPEARANCE, URINE CLEAR (CLEAR); BACTERIA, URINE AUTO 1+ (NEGATIVE); BILIRUBIN, URINE AUTO NEGATIVE (NEGATIVE); BLOOD, URINE BLOOD 1+ (NEGATIVE); COLOR, URINE YELLOW (YELLOW); GLUCOSE, URINE (UA) AUTO NEGATIVE (NEGATIVE); KETONE, URINE AUTO NEGATIVE (NEGATIVE); LEUKOCYTE ESTERASE, URINE AUTO 1+ (NEGATIVE); MUCUS, URINE SMALL (NEGATIVE); NITRITE, URINE AUTO NEGATIVE (NEGATIVE); PROTEIN, URINE AUTO NEGATIVE (NEGATIVE); RBC, URINE AUTO 6 /HPF (0-3); SPECIFIC GRAVITY URINE AUTO 1.013 (1.002-1.035); SQUAMOUS EPITHELIAL CELL UR AU 0 /HPF (0-6); UROBILINOGEN, URINE AUTO 0.2 mg/dL (0.0-2.0); WBC, URINE AUTO 35 /HPF (0-3)
== END ==
LOC: M SMT 12:35
PROVIDERS: ATTEND Urology
DX: R39.9 Unspecified symptoms and signs involving the genitourinary system (principal)

== ENCOUNTER → 2024-10-20 | Outpatient (CLI) | payer BC ==
[~2024-10-20] MED LIST changes: +ISOVUE-370 76% 100ML VIAL As Ordered ONE
== END ==
LOC: M RAD 08:19
PROVIDERS: ATTEND Specialist
DX: C48.2 Malignant neoplasm of peritoneum, unspecified (principal); R93.5 Abnormal findings on diagnostic imaging of other abdominal regions, including retroperitoneum
CPT/HCPCS: 71260; 74177; Q9967

== ENCOUNTER → 2024-10-21 | Outpatient (CLI) | payer BC ==
[~2024-10-21] MED LIST changes: -ISOVUE-370 76% 100ML VIAL As Ordered ONE
== END ==
LOC: M RAD 15:15
PROVIDERS: ATTEND Urology
DX: I82.220 Acute embolism and thrombosis of inferior vena cava (principal)

== ENCOUNTER → 2024-10-21 | Outpatient (REF) | payer BC ==
[2024-10-21 13:29] LABS: APPEARANCE, URINE CLEAR (CLEAR); BACTERIA, URINE AUTO 1+ (NEGATIVE); BILIRUBIN, URINE AUTO NEGATIVE (NEGATIVE); BLOOD, URINE BLOOD NEGATIVE (NEGATIVE); COLOR, URINE STRAW (YELLOW); GLUCOSE, URINE (UA) AUTO NEGATIVE (NEGATIVE); KETONE, URINE AUTO NEGATIVE (NEGATIVE); LEUKOCYTE ESTERASE, URINE AUTO NEGATIVE (NEGATIVE); MUCUS, URINE SMALL (NEGATIVE); NITRITE, URINE AUTO NEGATIVE (NEGATIVE); PROTEIN, URINE AUTO NEGATIVE (NEGATIVE); RBC, URINE AUTO 0 /HPF (0-3); SPECIFIC GRAVITY URINE AUTO 1.006 (1.002-1.035); SQUAMOUS EPITHELIAL CELL UR AU 0 /HPF (0-6); UROBILINOGEN, URINE AUTO 0.2 mg/dL (0.0-2.0); WBC, URINE AUTO 1 /HPF (0-3)
== END ==
LOC: M SMT 12:51
PROVIDERS: ATTEND Urology
DX: R39.9 Unspecified symptoms and signs involving the genitourinary system (principal); I82.220 Acute embolism and thrombosis of inferior vena cava

== ENCOUNTER → 2024-10-29 | Outpatient (CLI) | payer BC ==
[~2024-10-29] MED LIST changes: +BUPR150T12; +BUSP10TA; +ENOX80IN3; +NS (Normal Saline) 0.9% 1,000 ML IV SCH
[2024-10-29 12:51] VITALS: TEMP 98.4
[2024-10-29] MEDS: fentaNYL 100 MCG/2 ML INJECTION IV PRN (13:56)
[2024-10-29] MEDS: MIDAZOLAM INJ 2MG/2ML VIAL IV PRN (13:56)
[2024-10-29] MEDS: HEPARIN 1,000UNITS/ML 10ML VIAL (FOR RADIOLOGY & DIALYSIS ONLY) IV PRN (14:10)
[2024-10-29] MEDS: NS (Normal Saline) 0.9% 1,000 ML IV SCH (14:11)
[2024-10-29] MEDS: ISOVUE-300 61% 100ML VIAL IV SCH (15:29)
[2024-10-29] MEDS: LIDOCAINE 1% MDV 20ML VIAL SC SCH (15:29)
[2024-10-29 17:29] VITALS: BP 118/67; O2SAT 99
== END ==
LOC: M IRPRO 12:46
PROVIDERS: ATTEND Radiology Diagnostic Radiology
DX: I82.492 Acute embolism and thrombosis of other specified deep vein of left lower extremity (principal)
CPT/HCPCS: 37187; 99152; 99153; C1757; C1894; J2250; J3010; Q9967

== ENCOUNTER → 2025-01-20 | Outpatient (REF) | payer BC ==
[~2025-01-20] MED LIST changes: +NIRA200T; -NS (Normal Saline) 0.9% 1,000 ML IV SCH; +XARE20TA
[2025-01-20 08:18] LABS: BASO # 0.1 10^3/uL (0.0-0.2); BASO % 1.0 % (0.0-1.0); EOS # 0.1 10^3/uL (0.0-0.5); EOS % 1.7 % (0.0-3.0); LYMPH # 1.2 10^3/uL (1.5-5.0); LYMPH % 23.5 % (24.0-44.0); MONO # 0.4 10^3/uL (0.0-0.8); MONO % 7.4 % (2.0-8.0); NEUTROPHILS # 3.5 10^3/uL (1.5-8.5); NEUTROPHILS % 66.0 % (36.0-66.0); PLATELET COUNT, AUTOMATED 198 10^3/uL (150-450)
== END ==
LOC: M LAB REF 07:56
PROVIDERS: ATTEND Obstetrics & Gynecology Gynecologic Oncology
DX: C56.9 Malignant neoplasm of unspecified ovary (principal)

== ENCOUNTER → 2025-02-10 | Outpatient (REF) | payer BC ==
[2025-02-10 11:23] LABS: PLATELET COUNT, AUTOMATED 146 10^3/uL (150-450)
[2025-02-10 11:33] LABS: ALT/SGPT 19.0 U/L (7.0-40); AST/SGOT 19.0 U/L (<34); CALCIUM LEVEL 9.1 MG/DL (8.5-10.1); CARBON DIOXIDE LEVEL 28.0 MMOL/L (20-31); CHLORIDE LEVEL 100.0 MMOL/L (98-107); CREATININE FOR GFR 1.08 MG/DL (0.55-1.30); GLOMERULAR FILTRATION RATE 60.3 (>51); IRON (FE) 273.0 UG/DL (50-170); PERCENT SATURATION 96.8 % (13.2-45.0); POTASSIUM SERUM 4.3 MMOL/L (3.5-5.1); SODIUM LEVEL 138.0 MMOL/L (136-145)
[2025-02-10 11:34] LABS: FREE T4 1.46 NG/DL (0.89-1.76)
[2025-02-10 13:47] LABS: ESTIMATED AVERAGE GLUCOSE 146.0 MG/DL (60-110)
== END ==
LOC: M LAB REF 10:09
PROVIDERS: ATTEND Nurse Practitioner Adult Health
DX: Z83.3 Family history of diabetes mellitus (principal); D64.9 Anemia, unspecified; C56.9 Malignant neoplasm of unspecified ovary

== ENCOUNTER → 2025-02-10 | Outpatient (REF) | payer BC ==
[2025-02-10 11:31] LABS: BASO # 0.1 10^3/uL (0.0-0.2); BASO % 0.8 % (0.0-1.0); EOS # 0.1 10^3/uL (0.0-0.5); EOS % 1.4 % (0.0-3.0); LYMPH # 1.7 10^3/uL (1.5-5.0); LYMPH % 27.0 % (24.0-44.0); MONO # 0.3 10^3/uL (0.0-0.8); MONO % 4.7 % (2.0-8.0); NEUTROPHILS # 4.2 10^3/uL (1.5-8.5); NEUTROPHILS % 65.8 % (36.0-66.0); PLATELET COUNT, AUTOMATED 141 10^3/uL (150-450)
== END ==
LOC: M LAB REF 10:10
PROVIDERS: ATTEND Obstetrics & Gynecology Gynecologic Oncology
DX: C56.9 Malignant neoplasm of unspecified ovary (principal)

== ENCOUNTER → 2025-02-17 | Outpatient (CLI) | payer BC ==
[2025-02-17 11:17] LABS: ALT/SGPT 18.0 U/L (7.0-40); AST/SGOT 15.0 U/L (<34); CALCIUM LEVEL 9.2 MG/DL (8.5-10.1); CARBON DIOXIDE LEVEL 29.0 MMOL/L (20-31); CHLORIDE LEVEL 101.0 MMOL/L (98-107); CREATININE FOR GFR 1.3 MG/DL (0.55-1.30); GLOMERULAR FILTRATION RATE 48.3 (>51); POTASSIUM SERUM 3.9 MMOL/L (3.5-5.1); SODIUM LEVEL 139.0 MMOL/L (136-145)
== END ==
LOC: M PLALAB 06:55
PROVIDERS: ATTEND Nurse Practitioner Family
DX: C56.9 Malignant neoplasm of unspecified ovary (principal)

== ENCOUNTER → 2025-02-17 | Outpatient (CLI) | payer BC ==
[2025-02-17 17:40] LABS: BASO # 0.1 10^3/uL (0.0-0.2); BASO % 1.0 % (0.0-1.0); EOS # 0.2 10^3/uL (0.0-0.5); EOS % 2.4 % (0.0-3.0); LYMPH # 2.2 10^3/uL (1.5-5.0); LYMPH % 32.2 % (24.0-44.0); MONO # 0.6 10^3/uL (0.0-0.8); MONO % 9.1 % (2.0-8.0); NEUTROPHILS # 3.6 10^3/uL (1.5-8.5); NEUTROPHILS % 54.6 % (36.0-66.0); PLATELET COUNT, AUTOMATED 200 10^3/uL (150-450)
== END ==
LOC: M PLALAB 15:25
PROVIDERS: ATTEND Colon & Rectal Surgery
DX: Z51.11 Encounter for antineoplastic chemotherapy (principal); C56.9 Malignant neoplasm of unspecified ovary

== ENCOUNTER → 2025-02-18 | Outpatient (CLI) | payer BC ==
[~2025-02-18] VITALS: Ht 167.6 cm; Wt 83.6 kg
[~2025-02-18] MED LIST changes: +ACETAMINOPHEN 650 MG PO ONE; +NS (Normal Saline) 0.9% 250 ML IV ONE
[2025-02-18 16:24] VITALS: BP 142/66; TEMP 97.5; O2SAT 100
[2025-02-18 16:34] VITALS: BP 115/57; TEMP 97.9; O2SAT 99
[2025-02-18 17:32] VITALS: BP 123/60; TEMP 98; O2SAT 100
[2025-02-18 17:51] VITALS: BP 119/54; TEMP 97.4; O2SAT 100
== END ==
LOC: M INFU 15:59
PROVIDERS: ATTEND Internal Medicine Medical Oncology
DX: C57.00 Malignant neoplasm of unspecified fallopian tube (principal)
CPT/HCPCS: 36415; 36430; 86850; 86900; 86901; 86920; P9016

== ENCOUNTER → 2025-02-24 | Outpatient (CLI) | payer BC ==
[~2025-02-24] MED LIST changes: -ACETAMINOPHEN 650 MG PO ONE; -NS (Normal Saline) 0.9% 250 ML IV ONE
[2025-02-24 11:14] LABS: BASO # 0.1 10^3/uL (0.0-0.2); BASO % 0.9 % (0.0-1.0); EOS # 0.2 10^3/uL (0.0-0.5); EOS % 2.7 % (0.0-3.0); LYMPH # 1.0 10^3/uL (1.5-5.0); LYMPH % 17.5 % (24.0-44.0); MONO # 0.5 10^3/uL (0.0-0.8); MONO % 8.8 % (2.0-8.0); NEUTROPHILS # 3.9 10^3/uL (1.5-8.5); NEUTROPHILS % 69.7 % (36.0-66.0); PLATELET COUNT, AUTOMATED 281 10^3/uL (150-450)
[2025-02-24 11:47] LABS: ALT/SGPT 16.0 U/L (7.0-40); AST/SGOT 17.0 U/L (<34); CALCIUM LEVEL 9.5 MG/DL (8.5-10.1); CARBON DIOXIDE LEVEL 32.0 MMOL/L (20-31); CHLORIDE LEVEL 99.0 MMOL/L (98-107); CREATININE FOR GFR 1.1 MG/DL (0.55-1.30); GLOMERULAR FILTRATION RATE 59.0 (>51); POTASSIUM SERUM 4.2 MMOL/L (3.5-5.1); SODIUM LEVEL 138.0 MMOL/L (136-145)
== END ==
LOC: M PLALAB 07:02
PROVIDERS: ATTEND Colon & Rectal Surgery
DX: Z51.11 Encounter for antineoplastic chemotherapy (principal); C56.9 Malignant neoplasm of unspecified ovary

== ENCOUNTER → 2025-03-10 | Outpatient (REF) | payer BC ==
[2025-03-10 14:23] LABS: BASO # 0.1 10^3/uL (0.0-0.2); BASO % 1.0 % (0.0-1.0); EOS # 0.1 10^3/uL (0.0-0.5); EOS % 1.9 % (0.0-3.0); LYMPH # 1.0 10^3/uL (1.5-5.0); LYMPH % 14.7 % (24.0-44.0); MONO # 0.4 10^3/uL (0.0-0.8); MONO % 6.5 % (2.0-8.0); NEUTROPHILS # 5.1 10^3/uL (1.5-8.5); NEUTROPHILS % 75.5 % (36.0-66.0); PLATELET COUNT, AUTOMATED 284 10^3/uL (150-450)
[2025-03-10 14:53] LABS: ALT/SGPT 16.0 U/L (7.0-40); AST/SGOT 17.0 U/L (<34); CALCIUM LEVEL 9.6 MG/DL (8.5-10.1); CARBON DIOXIDE LEVEL 30.0 MMOL/L (20-31); CHLORIDE LEVEL 100.0 MMOL/L (98-107); CREATININE FOR GFR 1.15 MG/DL (0.55-1.30); GLOMERULAR FILTRATION RATE 55.9 (>51); POTASSIUM SERUM 4.5 MMOL/L (3.5-5.1); SODIUM LEVEL 136.0 MMOL/L (136-145)
[2025-03-10 15:10] LABS: CA 125 60.0 U/ML (<35)
== END ==
LOC: M LAB REF 13:55
PROVIDERS: ATTEND Obstetrics & Gynecology Gynecologic Oncology
DX: C56.9 Malignant neoplasm of unspecified ovary (principal)

== ENCOUNTER → 2025-03-17 | Outpatient (CLI) | payer BC ==
[2025-03-17 10:42] LABS: BASO # 0.1 10^3/uL (0.0-0.2); BASO % 0.8 % (0.0-1.0); EOS # 0.1 10^3/uL (0.0-0.5); EOS % 2.0 % (0.0-3.0); LYMPH # 1.0 10^3/uL (1.5-5.0); LYMPH % 14.7 % (24.0-44.0); MONO # 0.4 10^3/uL (0.0-0.8); MONO % 6.7 % (2.0-8.0); NEUTROPHILS # 4.9 10^3/uL (1.5-8.5); NEUTROPHILS % 75.2 % (36.0-66.0); PLATELET COUNT, AUTOMATED 291 10^3/uL (150-450)
[2025-03-17 11:19] LABS: ALT/SGPT 15.0 U/L (7.0-40); CALCIUM LEVEL 9.7 MG/DL (8.5-10.1); CARBON DIOXIDE LEVEL 30.0 MMOL/L (20-31); CHLORIDE LEVEL 97.0 MMOL/L (98-107); CREATININE FOR GFR 1.22 MG/DL (0.55-1.30); GLOMERULAR FILTRATION RATE 52.1 (>51); POTASSIUM SERUM 4.0 MMOL/L (3.5-5.1); SODIUM LEVEL 137.0 MMOL/L (136-145)
[2025-03-17 11:38] LABS: AST/SGOT 17.0 U/L (<34)
== END ==
LOC: M PLALAB 06:58
PROVIDERS: ATTEND Colon & Rectal Surgery
DX: Z51.11 Encounter for antineoplastic chemotherapy (principal); C56.9 Malignant neoplasm of unspecified ovary

== ENCOUNTER → 2025-03-21 | Outpatient (CLI) | payer BC ==
[~2025-03-21] MED LIST changes: +ISOVUE-370 76% 100 ML VIAL As Ordered ONE
== END ==
LOC: M RAD 16:26
PROVIDERS: ATTEND Specialist
DX: C57.00 Malignant neoplasm of unspecified fallopian tube (principal)

== ENCOUNTER → 2025-03-24 | Outpatient (CLI) | payer BC ==
[~2025-03-24] MED LIST changes: -ISOVUE-370 76% 100 ML VIAL As Ordered ONE; +THERTAB52 PO; +VITATAB64 PO
[2025-03-24 10:22] LABS: BASO # 0.0 10^3/uL (0.0-0.2); BASO % 0.5 % (0.0-1.0); EOS # 0.1 10^3/uL (0.0-0.5); EOS % 1.9 % (0.0-3.0); LYMPH # 1.2 10^3/uL (1.5-5.0); LYMPH % 18.6 % (24.0-44.0); MONO # 0.4 10^3/uL (0.0-0.8); MONO % 6.1 % (2.0-8.0); NEUTROPHILS # 4.7 10^3/uL (1.5-8.5); NEUTROPHILS % 72.4 % (36.0-66.0); PLATELET COUNT, AUTOMATED 220 10^3/uL (150-450)
[2025-03-24 10:27] LABS: ALT/SGPT 18.0 U/L (7.0-40); AST/SGOT 17.0 U/L (<34); CALCIUM LEVEL 9.1 MG/DL (8.5-10.1); CARBON DIOXIDE LEVEL 31.0 MMOL/L (20-31); CHLORIDE LEVEL 100.0 MMOL/L (98-107); CREATININE FOR GFR 1.09 MG/DL (0.55-1.30); GLOMERULAR FILTRATION RATE 59.6 (>51); POTASSIUM SERUM 4.3 MMOL/L (3.5-5.1); SODIUM LEVEL 135.0 MMOL/L (136-145)
== END ==
LOC: M PLALAB 06:58
PROVIDERS: ATTEND Nurse Practitioner Family
DX: C56.9 Malignant neoplasm of unspecified ovary (principal); Z92.21 Personal history of antineoplastic chemotherapy

== ENCOUNTER → 2025-06-02 | Outpatient (REF) | payer BC ==
[~2025-06-02] MED LIST changes: +CEPH500C PO; +ZOLO50TA PO
[2025-06-02 12:46] LABS: ESTIMATED AVERAGE GLUCOSE 123.0 MG/DL (60-110)
== END ==
LOC: M LABWUC 11:41
PROVIDERS: ATTEND Nurse Practitioner Adult Health
DX: Z83.3 Family history of diabetes mellitus (principal)

== ENCOUNTER → 2025-06-20 | Outpatient (CLI) | payer BC | LOC: M CARPUL 07:45 | PROVIDERS: ATTEND Internal Medicine Medical Oncology | DX: C48.2 Malignant neoplasm of peritoneum, unspecified (principal); Z79.69 Long term (current) use of other immunomodulators and immunosuppressants; I31.39 Other pericardial effusion (noninflammatory) ==